=== PATIENT | male | born 1960 | race Caucasian/White ===

== ENCOUNTER 2017-10-18 15:12 | Observation (INO) | payer MEDICAID ==
[2017-10-18] MEDS ORDERED: Ondansetron 4 MG/2 ML SDV IVPUSH ONE (15:58)
[2017-10-18] MEDS ORDERED: Potassium Chloride 20 MEQ in Premix Bag 1 BAG IV ONE (15:58)
[2017-10-18] MEDS ORDERED: Sodium Chloride 0.9% 1,000 ML IV SCH (16:00)
[2017-10-18] MEDS ORDERED: NS + KCl 20mEq/L 1,000 ML IV SCH (16:00)
--- NOTE | 2017-10-18 16:04 | EDM.PDOC ---
ED HPI GENERAL MEDICAL PROBLEM - General Chief Complaint: General Stated Complaint: ILNESS FROM THE CLINIC Time Seen by Provider: 10/18/17 15:45 Source of Information: Reports: Patient, Family History Limitations: Reports: No Limitations - History of Present Illness INITIAL COMMENTS - FREE TEXT/NARRATIVE: 57-year-old male sent over from the clinic after being evaluated for persistent gastroenteritis over the last several days. He had diarrhea for 2 days, that seems to have resolved but nausea and vomiting is persistent for 4 days. He feels weak, is having muscle cramps, and went into the clinic today to be evaluated. He was found to have a potassium of 2.3. This patient is on no medications and rarely goes to the doctor. Denies any fevers but is chilled. No abdominal cramping. No previous travel or other medications. Onset: Gradual (Over the past 4-5 days) Severity: Moderate Associated Symptoms: Reports: Fever/Chills, Malaise, Nausea/Vomiting, Weakness. Denies: Chest Pain (Intermittent chills, no known fever), Shortness of Breath Bilateral Leg Pain Score (Numeric/FACES): 6 - Related Data Allergies Allergy/AdvReac Type Severity Reaction Status Date / Time No Known Allergies Allergy Verified 10/18/17 15:46 Home Meds: Home Meds NK [No Known Home Meds] 10/18/17 [History] Past Medical History - Past Health History Medical/Surgical History: Denies Medical/Surgical History Social & Family History - Tobacco Use Smoking Status *Q: Current Every Day Smoker Years of Tobacco use: 30 Packs/Tins Daily: 1 - Caffeine Use Caffeine Use: Reports: None - Alcohol Use Days Per Week of Alcohol Use: 7 Number of Drinks Per Day: 1 Total Drinks Per Week: 7 - Recreational Drug Use Recreational Drug Use: No ED ROS GENERAL - Review of Systems Review Of Systems: See Below Constitutional: Reports: Chills, Malaise, Weakness, Decreased Appetite, Weight Loss. Denies: Fever HEENT: Denies: Throat Pain Respiratory: Denies: Shortness of Breath, Cough Cardiovascular: Reports: Lightheadedness. Denies: Chest Pain, Palpitations GI/Abdominal: Reports: Nausea, Vomiting. Denies: Abdominal Pain : Reports: No Symptoms Skin: Reports: No Symptoms Neurological: Denies: Headache Psychiatric: Reports: No Symptoms ED EXAM, GENERAL - Physical Exam Exam: See Below Exam Limited By: No Limitations General Appearance: Alert, No Apparent Distress (Patient looks uncomfortable but not distressed) Eye Exam: Bilateral Eye: Normal Inspection Throat/Mouth: Normal Inspection Head: Atraumatic Respiratory/Chest: No Respiratory Distress, Lungs Clear Cardiovascular: Regular Rate, Rhythm. No: Tachycardia GI/Abdominal: Soft, Abnormal Bowel Sounds (Very hypoactive bowel sounds) Extremities: Normal Inspection, Increased Warmth. No: Pedal Edema Neurological: Oriented Psychiatric: Normal Affect, Normal Mood Skin Exam: Warm, Dry Course - Vital Signs Last Recorded V/S: Last Vital Signs Temp 96.8 F 10/18/17 17:41 Pulse 78 10/18/17 17:41 Resp 18 10/18/17 17:41 BP 153/95 H 10/18/17 17:41 Pulse Ox 100 10/18/17 17:41 - Orders/Labs/Meds Orders: Active Orders 24 hr Category Date Time Status NS + KCl 20mEq/L [Normal Saline with 20 mEq KCl] 1,000 Med 10/18/17 16:00 Active ml IV ASDIRECTED Medication Orders Acetaminophen (Tylenol) 650 mg PO Q4H PRN PRN Reason: Pain (Mild 1-3)/fever Potassium Chloride/Sodium Chloride (Normal Saline With 20 Meq Kcl) 1,000 mls @ 500 mls/hr IV ASDIRECTED ENOC Last Admin: 10/18/17 16:27 Dose: 500 mls/hr Sodium Chloride (Normal Saline) 1,000 mls @ 100 mls/hr IV ASDIRECTED ENOC Potassium Chloride 20 meq/Lidocaine HCl 2 ml/ Sodium Chloride 112 mls @ 50 mls/ hr IV Q2H ENOC Stop: 10/18/17 21:59 Ondansetron HCl (Zofran Odt) 4 mg PO Q6H PRN PRN Reason: Nausea able to take PO Ondansetron HCl (Zofran) 4 mg IV Q6H PRN PRN Reason: Nausea/Vomiting Meds: Medications Generic Name Dose Route Start Last Admin Trade Name Freq PRN Reason Stop Dose Admin Acetaminophen 650 mg 10/18/17 17:19 Tylenol PO Q4H PRN Pain (Mild 1-3)/fever Potassium Chloride/Sodium Chloride 1,000 mls @ 500 mls/hr 10/18/17 16:00 16:27 Normal Saline With 20 Meq Kcl IV 500 mls/hr ASDIRECTED ENOC Administration Sodium Chloride 1,000 mls @ 100 mls/hr 10/18/17 17:19 Normal Saline IV ASDIRECTED ENOC Potassium Chloride 20 meq/ 112 mls @ 50 mls/hr 10/18/17 18:00 Lidocaine HCl 2 ml/ Sodium IV 10/18/17 21:59 Chloride Q2H ENOC Ondansetron HCl 4 mg 10/18/17 17:19 Zofran Odt PO Q6H PRN Nausea able to take PO Ondansetron HCl 4 mg 10/18/17 17:19 Zofran IV Q6H PRN Nausea/Vomiting Discontinued Medications Generic Name Dose Route Start Last Admin Trade Name Freq PRN Reason Stop Dose Admin Ondansetron HCl 4 mg 10/18/17 15:58 10/18/17 16:28 Zofran IVPUSH 10/18/17 15:59 4 mg ONETIME ONE Administration - Re-Assessments/Exams Free Text/Narrative Re-Assessment/Exam: 10/18/17 16:08 Patient will be hydrated with normal saline with 40 mEq of potassium at 500 mL an hour. He was also given 4 mg of IV Zofran. 10/18/17 16:35 I discussed the patient's symptoms as well as his significant hypokalemia with our hospitalist Dr. Dillon. He kindly agreed to see the patient and assess for possible admission. Departure - Departure Time of Disposition: 17:32 Disposition: Admitted As Inpatient 64 Condition: Fair Clinical Impression: Hypokalemia, Gastroenteritis, Dehydration - Discharge Information - My Orders Last 24 Hours: My Active Orders 10/18/17 16:00 NS + KCl 20mEq/L [Normal Saline with 20 mEq KCl] 1,000 ml IV ASDIRECTED - Assessment/Plan Last 24 Hours: My Active Orders 10/18/17 16:00 NS + KCl 20mEq/L [Normal Saline with 20 mEq KCl] 1,000 ml IV ASDIRECTED
--- NOTE | 2017-10-18 16:57 | PCM.HP ---
H&P History of Present Illness - General Date of Service: 10/18/17 Admit Problem/Dx: Admission Diagnosis/Problem Admission Diagnosis/Problem Gastroenteritis Source of Information: Patient, Provider History Limitations: Reports: No Limitations - History of Present Illness Initial Comments - Free Text/Narative: Elieser presents to the emergency room today with weakness and persistent nausea. He reports onset of symptoms about 4 days ago. Initially he had watery diarrhea as well as nausea with vomiting. The watery diarrhea last 2 days before resolving spontaneously. Despite the resolution of the diarrhea he has had persistent nausea and intermittent episodes of vomiting. He has not kept any food down in 4 days but was able to keep water down today. He reports subjective fevers and chills at home but did not have a thermometer to measure any temperatures. He did have some mild crampy abdominal pain at the onset of the diarrhea but this has resolved. He did not take anything for the pain because it was mild. The pain seemed to be worst right around the time of having a bowel movement. He did not notice any blood in his stool. No complaints of shortness of breath. He does feel weak and does not have an appetite. He is not aware of any sick contacts. He was initially evaluated in the clinic and found to have a potassium of 2.3 so he was sent to the emergency room. He has received some potassium replacement but with persistent nausea he likely will not be safe for outpatient management and would benefit from at least overnight admission for hydration and potassium replacement. Bilateral Leg Pain Score (Numeric/FACES): 6 - Related Data Allergies/Adverse Reactions: Allergies Allergy/AdvReac Type Severity Reaction Status Date / Time No Known Allergies Allergy Verified 10/18/17 15:46 Home Medications: Home Meds NK [No Known Home Meds] 10/18/17 [History] Past Medical History - Past Health History Medical/Surgical History: Denies Medical/Surgical History Social & Family History - Family History Cardiac: Reports: CAD (Dad) - Tobacco Use Smoking Status *Q: Current Every Day Smoker Years of Tobacco use: 30 Packs/Tins Daily: 1 - Caffeine Use Caffeine Use: Reports: None - Alcohol Use Days Per Week of Alcohol Use: 7 Number of Drinks Per Day: 1 Total Drinks Per Week: 7 - Recreational Drug Use Recreational Drug Use: No H&P Review of Systems - Review of Systems: Review Of Systems: See Below Free Text/Narrative: A complete 12 point review of systems was obtained. Pertinent positives and negatives are noted in the history of present illness. All other systems were reviewed and were negative except as noted. Exam - Exam Exam: See Below - Vital Signs Vital Signs: Last Vital Signs Temp 36.5 C 10/18/17 15:37 Pulse 90 10/18/17 15:37 Resp 20 10/18/17 15:37 BP 151/100 H 10/18/17 15:37 Pulse Ox 99 10/18/17 15:37 Weight: 81.647 kg - Exam Quality Assessment: No: Supplemental Oxygen General: Alert, Oriented, Cooperative. No: Mild Distress HEENT: Conjunctiva Clear. No: Mucosa Moist & [place] (dry), Scleral Icterus Neck: Supple, Trachea Midline. No: Lymphadenopathy Lungs: Clear to Auscultation, Normal Respiratory Effort Cardiovascular: Regular Rate, Regular Rhythm GI/Abdominal Exam: Soft, Non-Tender, No Distention, No Mass. No: Normal Bowel Sounds (hypoactive) Back Exam: Normal Inspection, Full Range of Motion Extremities: No Pedal Edema. No: Increased Warmth Peripheral Pulses: 2+: Dorsalis Pedis (L), Dorsalis Pedis (R) Skin: Warm, Dry, Intact Neuro Extensive - Mental Status: Alert, Oriented x3, Nl Response to Commands Neuro Extensive - Motor, Sensory, Reflexes: CN II-XII Intact. No: Dysarthria, Abnormal Motor, Tremor Psychiatric: Alert, Normal Affect - Patient Data Lab Results Last 24 hrs: K - 2.3 *Q Meaningful Use (ADM) - VTE *Q VTE Criteria *Q: - VTE Risk Assess *Q Each Risk Factor Represents 1 Point: Age 41 - 59 years Total Score 1 Point Risk Factors: 1 Each Risk Factor Represents 2 Points: None Total Score 2 Point Risk Factors: 0 Each Risk Factor Represents 3 Points: None Total Score 3 Point Risk Factors: 0 Each Risk Factor Represents 5 Points: None Total Score 5 Point Risk Factors: 0 Venous Thromboembolism Risk Factor Score *Q: 1 - Stroke *Q Stroke Criteria *Q: - AMI *Q AMI Criteria *Q: - Problem List (1) Hypokalemia SNOMED Code(s): 82887145 ICD Code: E87.6 - HYPOKALEMIA Status: Acute Current Visit: Yes (2) Gastroenteritis SNOMED Code(s): 17114839 ICD Code: K52.9 - NONINFECTIVE GASTROENTERITIS AND COLITIS, UNSPECIFIED Status: Acute Current Visit: Yes (3) Dehydration SNOMED Code(s): 35588344 ICD Code: E86.0 - DEHYDRATION Status: Acute Current Visit: Yes Problem List Initiated/Reviewed/Updated: Yes Orders Last 24hrs: Active Orders 24 hr Category Date Time Status Patient Status Manage Transfer [TRANSFER] Routine ADT 10/18/17 16:47 Ordered NS + KCl 20mEq/L [Normal Saline with 20 mEq KCl] 1,000 Med 10/18/17 16:00 Active ml IV ASDIRECTED Resuscitation Status Routine Resus Stat 10/18/17 16:48 Ordered Medication Orders Potassium Chloride/Sodium Chloride (Normal Saline With 20 Meq Kcl) 1,000 mls @ 500 mls/hr IV ASDIRECTED ENOC Last Admin: 10/18/17 16:27 Dose: 500 mls/hr Assessment/Plan Comment:: ASSESSMENT AND PLAN - Hypokalemia - profound hypokalemia noted in the clinic. Likely secondary to combination of diarrhea as well as persistent vomiting and poor oral intake over the past 4 days. He appears to be symptomatic with this but given his weakness and some muscle cramping. He will have received a total of 20 mEq in the emergency room prior to admission. -40 mEq via IV piggyback -Repeat level this evening and replace as indicated Acute gastroenteritis, likely viral - diarrhea has resolved and vomiting seems to be resolved at this point as well but persistent nausea. He has evidence for at least moderate dehydration. -Symptomatic management -IV fluids -Clear liquids tonight, advance as tolerated after that Maintenance issues - - DVT prophylaxis - mechanical - GI prophylaxis - not indicated - Nutrition - clear liquids, advance as tolerated - Cobian catheter - not indicated CODE STATUS - full code Admission justification - This patient will be admitted for inpatient services and is medically appropriate meeting medical necessity for inpatient admission as outlined in my documentation. I reasonably expect the patient will require inpatient services that span a period time over 2 midnights. I reasonably expect this patient to be discharged or transferred within 96 hours after admission to the [facility]. Disposition - anticipate discharge to home tomorrow Primary care physician - no primary care Mandeep Dillon M.D.
[2017-10-18] MEDS ORDERED: Ondansetron 4 MG Tab.DIS PO PRN (17:19)
[2017-10-18] MEDS ORDERED: Ondansetron 4 MG/2 ML SDV IV PRN (17:19)
[2017-10-18] MEDS ORDERED: Acetaminophen 325 MG Tab PO PRN (17:19)
[2017-10-18] MEDS: Sodium Chloride 0.9% 1,000 ML IV SCH (18:33)
[2017-10-18] MEDS: Potassium Chloride 20 MEQ, Lidocaine 1% 2 ML in Sodium Chloride 0.9% 100 ML IV SCH ×2 (18:34→20:52)
[2017-10-19] MEDS ORDERED: Potassium Chloride 20 MEQ in Premix Bag 1 BAG IV ONE ×3 (02:00)
[2017-10-19] MEDS: Potassium Chloride 20 MEQ, Lidocaine 1% 2 ML in Sodium Chloride 0.9% 100 ML IV SCH ×3 (10:30→15:57)
[2017-10-19] MEDS: Magnesium Sulfate/Water 2 GM in Premix Bag 1 BAG IV SCH ×4 (15:30→23:59)
--- NOTE | 2017-10-19 15:42 | PCM.PN ---
- General Info Date of Service: 10/19/17 - Review of Systems General: Reports: Weakness, Fatigue. Denies: Fever Gastrointestinal: Denies: Abdominal Pain, Diarrhea, Nausea Systems Review Comment:: No acute events overnight. No nausea or vomiting. He has not had any diarrhea or fevers. Appetite is a little better today but still only able to get down small quantities of fluid. Potassium level has not improved much despite aggressive supplementation overnight. Magnesium level was noted to be low this morning. - Patient Data Vitals - Most Recent: Last Vital Signs Temp 37.3 C 10/18/17 23:02 Pulse 88 10/18/17 23:02 Resp 18 10/18/17 23:02 BP 139/91 H 10/18/17 23:02 Pulse Ox 98 10/18/17 23:02 Weight - Most Recent: 81.647 kg I&O - Last 24 Hours: Intake & Output 10/19/17 10/19/17 10/19/17 06:59 14:59 22:59 Intake Total 100 Output Total 150 Balance -50 Lab Results Last 24 Hours: Laboratory Results - last 24 hr 10/18/17 10/19/17 Range/Units 23:30 04:31 Sodium 143 (140-148) mmol/L Potassium 2.3 L* 2.5 L* (3.6-5.2) mmol/L Chloride 107 (100-108) mmol/L Carbon Dioxide 26 (21-32) mmol/L Anion Gap 10.3 (5.0-14.0) mmol/L BUN 11 (7-18) mg/dL Creatinine 0.7 L (0.8-1.3) mg/dL Est Cr Clr Drug Dosing 131.22 mL/min Estimated GFR (MDRD) > 60 (>60) Glucose 89 (74-106) mg/dL Calcium 8.0 L (8.5-10.1) mg/dL Med Orders - Current: Current Medications Acetaminophen (Tylenol) 650 mg PO Q4H PRN PRN Reason: Pain (Mild 1-3)/fever Sodium Chloride (Normal Saline) 1,000 mls @ 100 mls/hr IV ASDIRECTED ENOC Last Admin: 10/18/17 18:33 Dose: 100 mls/hr Magnesium Sulfate 2 gm/ Premix 50 mls @ 25 mls/hr IV Q6H ENOC Stop: 10/20/17 04:59 Ondansetron HCl (Zofran Odt) 4 mg PO Q6H PRN PRN Reason: Nausea able to take PO Ondansetron HCl (Zofran) 4 mg IV Q6H PRN PRN Reason: Nausea/Vomiting Discontinued Medications Potassium Chloride/Sodium Chloride (Normal Saline With 20 Meq Kcl) 1,000 mls @ 500 mls/hr IV ASDIRECTED COUNTS INCLUDE 234 BEDS AT THE [facility] Last Admin: 10/18/17 16:27 Dose: 500 mls/hr Potassium Chloride 20 meq/Lidocaine HCl 2 ml/ Sodium Chloride 112 mls @ 50 mls/ hr IV Q2H ENOC Stop: 10/18/17 21:59 Last Admin: 10/18/17 20:52 Dose: 50 mls/hr Potassium Chloride 20 meq/ (Premix) 100 mls @ 50 mls/hr IV ONETIME ONE Stop: 10/19/17 01:59 Last Admin: 10/19/17 00:33 Dose: 50 mls/hr Potassium Chloride 20 meq/ (Premix) 100 mls @ 50 mls/hr IV ONETIME ONE Stop: 10/19/17 03:59 Last Admin: 10/19/17 02:44 Dose: 50 mls/hr Potassium Chloride 20 meq/Lidocaine HCl 2 ml/ Sodium Chloride 112 mls @ 56 mls/ hr IV Q2H COUNTS INCLUDE 234 BEDS AT THE [facility] Stop: 10/19/17 14:29 Lidocaine HCl (Xylocaine-Mpf 1%) 5 ml INJECT ONETIME ONE Stop: 10/19/17 00:01 Last Admin: 10/19/17 00:33 Dose: 5 ml Ondansetron HCl (Zofran) 4 mg IVPUSH ONETIME ONE Stop: 10/18/17 15:59 Last Admin: 10/18/17 16:28 Dose: 4 mg - Exam Quality Assessment: No: Supplemental Oxygen General: Alert, Oriented, Cooperative, No Acute Distress Neck: Supple Lungs: Normal Respiratory Effort Cardiovascular: Regular Rate, Regular Rhythm GI/Abdominal Exam: Soft, No Distention Extremities: No Pedal Edema - Problem List & Annotations (1) Hypokalemia SNOMED Code(s): 45003236 Code(s): E87.6 - HYPOKALEMIA Status: Acute Current Visit: Yes (2) Gastroenteritis SNOMED Code(s): 67399291 Code(s): K52.9 - NONINFECTIVE GASTROENTERITIS AND COLITIS, UNSPECIFIED Status: Acute Current Visit: Yes (3) Dehydration SNOMED Code(s): 47228787 Code(s): E86.0 - DEHYDRATION Status: Acute Current Visit: Yes - Problem List Review Problem List Initiated/Reviewed/Updated: Yes - My Orders Last 24 Hours: My Active Orders 10/18/17 16:48 Resuscitation Status Routine 10/18/17 17:19 Patient Status [ADT] Routine Intake and Output [RC] Q12H Notify Provider Vital Signs [RC] ASDIRECTED Oxygen Therapy [RC] PRN Up ad Yessica [RC] ASDIRECTED VTE/DVT Education [RC] Per Unit Routine Vital Signs [RC] Q4H Acetaminophen [Tylenol] 650 mg PO Q4H PRN Ondansetron [Zofran ODT] 4 mg PO Q6H PRN Ondansetron [Zofran] 4 mg IV Q6H PRN Sodium Chloride 0.9% [Normal Saline] 1,000 ml IV ASDIRECTED Sequential Compression Device [OM.PC] Per Unit Routine 10/18/17 Dinner Clear Liquid Diet [DIET] 10/19/17 09:00 Magnesium Sulfate/Water [Magnesium Sulfate 2 GM in Water 50 ML] 2 gm Premix Bag 1 bag IV Q6H 10/19/17 16:00 POTASSIUM,K [CHEM] Timed 10/20/17 05:00 BASIC METABOLIC PANEL,BMP [CHEM] Timed CBC W/O DIFF,HEMOGRAM [HEME] Timed (1) - Plan Plan:: ASSESSMENT AND PLAN - Hypokalemia - profound hypokalemia, has been resistant to supplementation. Hopefully improving his magnesium levels will make supplementation more efficient. -40 mEq by mouth and 20 mEq via IV piggyback -Repeat lab tonight and in the morning Acute gastroenteritis, likely viral - diarrhea and vomiting have resolved but still not much of an appetite and poor intake. -Symptomatic management -Continue IV fluids -Clear liquids, advance as tolerated after that Maintenance issues - - DVT prophylaxis - mechanical - GI prophylaxis - not indicated - Nutrition - clear liquids, advance as tolerated Disposition - anticipate discharge to home tomorrow Mandeep Dillon M.D.
[2017-10-19] MEDS ORDERED: Potassium Chloride 20 MEQ, Lidocaine 1% 2 ML in Sodium Chloride 0.9% 100 ML IV SCH (17:00)
[2017-10-19] MEDS ORDERED: Potassium Chloride 20 MEQ Tab.ER PO ONE (17:00)
[2017-10-19] MEDS: Sodium Chloride 0.9% 1,000 ML IV SCH (17:51)
[2017-10-20] MEDS ORDERED: Potassium Chloride 20 MEQ Tab.ER PO ONE ×4 (00:22→21:26)
--- NOTE | 2017-10-20 00:54 | PCM.SN ---
- Free Text/Narrative Note: time 2400; call from [address] [place] [address]. o; potassium level 3.5 a; potassium low p; give Potassium 40 meq po now. recheck potassium in am.
[2017-10-20] MEDS: Magnesium Sulfate/Water 2 GM in Premix Bag 1 BAG IV SCH (03:27)
[2017-10-20] MEDS: Sodium Chloride 0.9% 1,000 ML IV SCH (05:30)
--- NOTE | 2017-10-20 08:51 | PCM.PN ---
- General Info Date of Service: 10/20/17 Functional Status: Reports: Pain Controlled, Tolerating Diet - Review of Systems General: Reports: Weakness, Fatigue HEENT: Reports: Visual Changes Gastrointestinal: Denies: Diarrhea, Nausea Systems Review Comment:: No acute events overnight. No vomiting or diarrhea. Stomach still feels a little queasy and not much of an appetite. Potassium level still low despite aggressive replacement. No fevers. - Patient Data Vitals - Most Recent: Last Vital Signs Temp 36.3 C 10/20/17 07:24 Pulse 81 10/20/17 07:24 Resp 18 10/20/17 07:24 BP 147/88 H 10/20/17 07:24 Pulse Ox 99 10/20/17 07:24 Weight - Most Recent: 81.647 kg I&O - Last 24 Hours: Intake & Output 10/19/17 10/20/17 10/20/17 22:59 06:59 14:59 Intake Total 2173 1106 480 Output Total 2250 2100 325 Balance -77 -994 155 Lab Results Last 24 Hours: Laboratory Results - last 24 hr 10/19/17 10/19/17 10/19/17 Range/Units 04:31 08:40 15:51 WBC (4.5-11.0) K/uL RBC (4.30-5.90) M/uL Hgb (12.0-15.0) g/dL Hct (40.0-54.0) % MCV (80-98) fL MCH (27-31) pg MCHC (32-36) % Plt Count (150-400) K/uL Sodium 143 (140-148) mmol/L Potassium 2.5 L* 2.5 L* (3.6-5.2) mmol/L Chloride 107 (100-108) mmol/L Carbon Dioxide 26 (21-32) mmol/L Anion Gap 10.3 (5.0-14.0) mmol/L BUN 11 (7-18) mg/dL Creatinine 0.7 L (0.8-1.3) mg/dL Est Cr Clr Drug Dosing 131.22 mL/min Estimated GFR (MDRD) > 60 (>60) Glucose 89 (74-106) mg/dL Calcium 8.0 L (8.5-10.1) mg/dL Magnesium 1.3 L (1.8-2.4) mg/dL 10/19/17 10/20/17 10/20/17 Range/Units 23:50 05:45 05:45 WBC 6.9 (4.5-11.0) K/uL RBC 3.87 L (4.30-5.90) M/uL Hgb 14.3 (12.0-15.0) g/dL Hct 37.8 L (40.0-54.0) % MCV 98 (80-98) fL MCH 37 H (27-31) pg MCHC 38 H (32-36) % Plt Count 230 (150-400) K/uL Sodium 140 (140-148) mmol/L Potassium 3.0 L 2.7 L* (3.6-5.2) mmol/L Chloride 103 (100-108) mmol/L Carbon Dioxide 25 (21-32) mmol/L Anion Gap 14.7 H (5.0-14.0) mmol/L BUN 4 L D (7-18) mg/dL Creatinine 0.7 L (0.8-1.3) mg/dL Est Cr Clr Drug Dosing 131.22 mL/min Estimated GFR (MDRD) > 60 (>60) Glucose 100 (74-106) mg/dL Calcium 8.0 L (8.5-10.1) mg/dL Magnesium (1.8-2.4) mg/dL Med Orders - Current: Current Medications Acetaminophen (Tylenol) 650 mg PO Q4H PRN PRN Reason: Pain (Mild 1-3)/fever Potassium Chloride 20 meq/Lidocaine HCl 2 ml/ Sodium Chloride 112 mls @ 56 mls/ hr IV Q2H [facility] Stop: 10/20/17 13:59 Ondansetron HCl (Zofran Odt) 4 mg PO Q6H PRN PRN Reason: Nausea able to take PO Ondansetron HCl (Zofran) 4 mg IV Q6H PRN PRN Reason: Nausea/Vomiting Discontinued Medications Potassium Chloride/Sodium Chloride (Normal Saline With 20 Meq Kcl) 1,000 mls @ 500 mls/hr IV ASDIRECTED [facility] Last Admin: 10/18/17 16:27 Dose: 500 mls/hr Sodium Chloride (Normal Saline) 1,000 mls @ 100 mls/hr IV ASDIRECTED [facility] Last Admin: 10/20/17 05:30 Dose: 100 mls/hr Potassium Chloride 20 meq/Lidocaine HCl 2 ml/ Sodium Chloride 112 mls @ 50 mls/ hr IV Q2H [facility] Stop: 10/18/17 21:59 Last Admin: 10/18/17 20:52 Dose: 50 mls/hr Potassium Chloride 20 meq/ (Premix) 100 mls @ 50 mls/hr IV ONETIME ONE Stop: 10/19/17 01:59 Last Admin: 10/19/17 00:33 Dose: 50 mls/hr Potassium Chloride 20 meq/ (Premix) 100 mls @ 50 mls/hr IV ONETIME ONE Stop: 10/19/17 03:59 Last Admin: 10/19/17 02:44 Dose: 50 mls/hr Potassium Chloride 20 meq/Lidocaine HCl 2 ml/ Sodium Chloride 112 mls @ 56 mls/ hr IV Q2H [facility] Stop: 10/19/17 14:29 Last Admin: 10/19/17 15:57 Dose: Not Given Magnesium Sulfate 2 gm/ Premix 50 mls @ 25 mls/hr IV Q6H [facility] Stop: 10/20/17 04:59 Last Admin: 10/19/17 15:51 Dose: Not Given Magnesium Sulfate 2 gm/ Premix 50 mls @ 25 mls/hr IV Q4H [facility] Stop: 10/20/17 05:29 Last Admin: 10/20/17 03:27 Dose: 25 mls/hr Potassium Chloride 20 meq/Lidocaine HCl 2 ml/ Sodium Chloride 112 mls @ 50 mls/ hr IV Q2H [facility] Stop: 10/19/17 18:59 Last Admin: 10/19/17 18:14 Dose: 50 mls/hr Lidocaine HCl (Xylocaine-Mpf 1%) 5 ml INJECT ONETIME ONE Stop: 10/19/17 00:01 Last Admin: 10/19/17 00:33 Dose: 5 ml Ondansetron HCl (Zofran) 4 mg IVPUSH ONETIME ONE Stop: 10/18/17 15:59 Last Admin: 10/18/17 16:28 Dose: 4 mg Potassium Chloride (Klor-Con M20) 40 meq PO ONETIME ONE Stop: 10/19/17 17:01 Last Admin: 10/19/17 18:10 Dose: 40 meq Potassium Chloride (Klor-Con M20) 40 meq PO ONETIME ONE Stop: 10/20/17 00:23 Last Admin: 10/20/17 00:31 Dose: 40 meq Potassium Chloride (Klor-Con M20) 40 meq PO ONETIME ONE Stop: 10/20/17 06:31 Last Admin: 10/20/17 07:32 Dose: 40 meq - Exam Quality Assessment: No: Supplemental Oxygen General: Alert, Oriented, Cooperative, No Acute Distress Neck: Supple Lungs: Normal Respiratory Effort GI/Abdominal Exam: Soft, Non-Tender, No Distention, No Mass Extremities: No Pedal Edema Skin: Warm, Dry Psy/Mental Status: Alert, Normal Affect - Problem List & Annotations (1) Hypokalemia SNOMED Code(s): 22557155 Code(s): E87.6 - HYPOKALEMIA Status: Acute Current Visit: Yes (2) Gastroenteritis SNOMED Code(s): 60395602 Code(s): K52.9 - NONINFECTIVE GASTROENTERITIS AND COLITIS, UNSPECIFIED Status: Acute Current Visit: Yes (3) Dehydration SNOMED Code(s): 54043170 Code(s): E86.0 - DEHYDRATION Status: Acute Current Visit: Yes - Problem List Review Problem List Initiated/Reviewed/Updated: Yes - My Orders Last 24 Hours: My Active Orders 10/20/17 08:50 Convert IV to Saline Lock [OM.PC] Routine 10/20/17 10:00 Potassium Chloride 20 meq Lidocaine 1% [Xylocaine 1%] 2 ml Sodium Chloride 0.9 % [Normal Saline] 100 ml IV Q2H 10/20/17 13:00 POTASSIUM,K [CHEM] Timed 10/21/17 05:00 BASIC METABOLIC PANEL,BMP [CHEM] Timed - Plan Plan:: ASSESSMENT AND PLAN - Hypokalemia - potassium still low despite aggressive replacement. -40 mEq by mouth and 20 mEq via IV piggyback -Repeat lab this afternoon Acute gastroenteritis, likely viral - symptoms resolved but not much of an appetite. -Saline lock IV -Advance diet as tolerated Maintenance issues - - DVT prophylaxis - mechanical - GI prophylaxis - not indicated - Nutrition - clear liquids, advance as tolerated Disposition - anticipate discharge to home tomorrow if potassium level has normalized Mandeep Dillon M.D.
[2017-10-20] MEDS: Potassium Chloride 20 MEQ, Lidocaine 1% 2 ML in Sodium Chloride 0.9% 100 ML IV SCH ×2 (10:15→12:19)
--- NOTE | 2017-10-20 23:03 | PCM.SN ---
- Free Text/Narrative Note: o: lab potassium 3.2 at 20:00 a; hypokalemia p; order Potassium 40meq po once recheck Potassium lab in am. continue present plan of care
[2017-10-21] MEDS ORDERED: Potassium Chloride 20 MEQ Tab.ER PO ONE (09:00)
--- NOTE | 2017-10-21 14:05 | PCM.PN ---
- General Info Date of Service: 10/21/17 Functional Status: Reports: Pain Controlled, Tolerating Diet - Review of Systems General: Reports: Weakness. Denies: Fever Systems Review Comment:: no acute events overnight though he did have one episode of vomiting after lunch yesterday. Tolerated supper and breakfast. Potassium level is finally nearing normal. No abdominal pain or diarrhea. Still having blurred vision and now reports that it has been present for months and getting worse over the course of years. Very nervous about going home. - Patient Data Vitals - Most Recent: Last Vital Signs Temp 36.4 C 10/21/17 11:05 Pulse 72 10/21/17 11:05 Resp 17 10/21/17 11:05 BP 157/98 H 10/21/17 11:05 Pulse Ox 99 10/21/17 11:05 Weight - Most Recent: 81.647 kg I&O - Last 24 Hours: Intake & Output 10/20/17 10/21/17 10/21/17 22:59 06:59 14:59 Intake Total 240 Output Total 1100 175 Balance -860 -175 Lab Results Last 24 Hours: Laboratory Results - last 24 hr 10/20/17 10/21/17 Range/Units 20:00 04:50 Sodium 139 L (140-148) mmol/L Potassium 3.2 L 3.4 L (3.6-5.2) mmol/L Chloride 104 (100-108) mmol/L Carbon Dioxide 23 (21-32) mmol/L Anion Gap 15.4 H (5.0-14.0) mmol/L BUN 4 L (7-18) mg/dL Creatinine 0.8 (0.8-1.3) mg/dL Est Cr Clr Drug Dosing 114.82 mL/min Estimated GFR (MDRD) > 60 (>60) Glucose 93 (74-106) mg/dL Calcium 8.2 L (8.5-10.1) mg/dL Med Orders - Current: Current Medications Acetaminophen (Tylenol) 650 mg PO Q4H PRN PRN Reason: Pain (Mild 1-3)/fever Ondansetron HCl (Zofran Odt) 4 mg PO Q6H PRN PRN Reason: Nausea able to take PO Last Admin: 10/20/17 14:38 Dose: 4 mg Ondansetron HCl (Zofran) 4 mg IV Q6H PRN PRN Reason: Nausea/Vomiting Pantoprazole Sodium (Protonix) 40 mg PO BIDAC [facility] Discontinued Medications Potassium Chloride/Sodium Chloride (Normal Saline With 20 Meq Kcl) 1,000 mls @ 500 mls/hr IV ASDIRECTED [facility] Last Admin: 10/18/17 16:27 Dose: 500 mls/hr Sodium Chloride (Normal Saline) 1,000 mls @ 100 mls/hr IV ASDIRECTED [facility] Last Admin: 10/20/17 05:30 Dose: 100 mls/hr Potassium Chloride 20 meq/Lidocaine HCl 2 ml/ Sodium Chloride 112 mls @ 50 mls/ hr IV Q2H [facility] Stop: 10/18/17 21:59 Last Admin: 10/18/17 20:52 Dose: 50 mls/hr Potassium Chloride 20 meq/ (Premix) 100 mls @ 50 mls/hr IV ONETIME ONE Stop: 10/19/17 01:59 Last Admin: 10/19/17 00:33 Dose: 50 mls/hr Potassium Chloride 20 meq/ (Premix) 100 mls @ 50 mls/hr IV ONETIME ONE Stop: 10/19/17 03:59 Last Admin: 10/19/17 02:44 Dose: 50 mls/hr Potassium Chloride 20 meq/Lidocaine HCl 2 ml/ Sodium Chloride 112 mls @ 56 mls/ hr IV Q2H [facility] Stop: 10/19/17 14:29 Last Admin: 10/19/17 13:00 Dose: 56 mls/hr Magnesium Sulfate 2 gm/ Premix 50 mls @ 25 mls/hr IV Q6H [facility] Stop: 10/20/17 04:59 Last Admin: 10/19/17 15:51 Dose: Not Given Magnesium Sulfate 2 gm/ Premix 50 mls @ 25 mls/hr IV Q4H [facility] Stop: 10/20/17 05:29 Last Admin: 10/20/17 03:27 Dose: 25 mls/hr Potassium Chloride 20 meq/Lidocaine HCl 2 ml/ Sodium Chloride 112 mls @ 50 mls/ hr IV Q2H [facility] Stop: 10/19/17 18:59 Last Admin: 10/19/17 18:14 Dose: 50 mls/hr Potassium Chloride 20 meq/Lidocaine HCl 2 ml/ Sodium Chloride 112 mls @ 56 mls/ hr IV Q2H [facility] Stop: 10/20/17 13:59 Last Admin: 10/20/17 12:19 Dose: 56 mls/hr Lidocaine HCl (Xylocaine-Mpf 1%) 5 ml INJECT ONETIME ONE Stop: 10/19/17 00:01 Last Admin: 10/19/17 00:33 Dose: 5 ml Ondansetron HCl (Zofran) 4 mg IVPUSH ONETIME ONE Stop: 10/18/17 15:59 Last Admin: 10/18/17 16:28 Dose: 4 mg Potassium Chloride (Klor-Con M20) 40 meq PO ONETIME ONE Stop: 10/19/17 17:01 Last Admin: 10/19/17 18:10 Dose: 40 meq Potassium Chloride (Klor-Con M20) 40 meq PO ONETIME ONE Stop: 10/20/17 00:23 Last Admin: 10/20/17 00:31 Dose: 40 meq Potassium Chloride (Klor-Con M20) 40 meq PO ONETIME ONE Stop: 10/20/17 06:31 Last Admin: 10/20/17 07:32 Dose: 40 meq Potassium Chloride (Klor-Con M20) 40 meq PO ONETIME ONE Stop: 10/20/17 14:46 Last Admin: 10/20/17 16:33 Dose: 40 meq Potassium Chloride (Klor-Con M20) 40 meq PO ONETIME ONE Stop: 10/20/17 21:27 Last Admin: 10/20/17 21:50 Dose: 40 meq Potassium Chloride (Klor-Con M20) 40 meq PO ONETIME ONE Stop: 10/21/17 09:01 Last Admin: 10/21/17 09:10 Dose: 40 meq - Exam Quality Assessment: No: Supplemental Oxygen General: Alert, Oriented, Cooperative, No Acute Distress HEENT: Other (Limited funduscopic examination at the bedside today revealed no evidence for hemorrhage. One vessels appeared normal. There was a little bit of blurring of the optic disc bilaterally) Neck: Supple Lungs: Normal Respiratory Effort GI/Abdominal Exam: Soft, Non-Tender, No Distention Extremities: No Pedal Edema Psy/Mental Status: Alert, Normal Affect - Problem List & Annotations (1) Hypokalemia SNOMED Code(s): 56154971 Code(s): E87.6 - HYPOKALEMIA Status: Acute Current Visit: Yes (2) Gastroenteritis SNOMED Code(s): 38469313 Code(s): K52.9 - NONINFECTIVE GASTROENTERITIS AND COLITIS, UNSPECIFIED Status: Acute Current Visit: Yes (3) Dehydration SNOMED Code(s): 47680938 Code(s): E86.0 - DEHYDRATION Status: Acute Current Visit: Yes - Problem List Review Problem List Initiated/Reviewed/Updated: Yes - My Orders Last 24 Hours: My Active Orders 10/20/17 Dinner Regular Diet [DIET] 10/21/17 14:04 PT Evaluation and Treatment [CONS] Routine 10/21/17 16:30 Pantoprazole [ProTONIX] 40 mg PO BIDAC 10/22/17 05:00 BASIC METABOLIC PANEL,BMP [CHEM] Timed - Plan Plan:: ASSESSMENT AND PLAN - Hypokalemia - potassium still low but improving with aggressive replacement. -40 mEq by mouth -Repeat lab in the morning Acute gastroenteritis, likely viral - symptoms resolved but not much of an appetite. -Saline lock IV -Advance diet as tolerated blurred vision - worsening over a long period of time. No obvious acute abnormalities on examination. -Outpatient follow-up Maintenance issues - - DVT prophylaxis - mechanical - GI prophylaxis - not indicated - Nutrition - regular diet Disposition - anticipate discharge to home tomorrow if safe discharge location can be found Mandeep Dillon M.D.
[2017-10-21] MEDS: Pantoprazole 40 MG Tab.CR PO SCH (16:29)
[2017-10-22] MEDS: Pantoprazole 40 MG Tab.CR PO SCH (08:26)
[2017-10-22] MEDS ORDERED: Potassium Chloride 20 MEQ Tab.ER PO ONE (09:00)
--- NOTE | 2017-10-22 10:30 | PCM.DCSUM1 ---
Discharge Summary - Hospital Course Brief History: 57-year-old male who presented with nausea, vomiting and diarrhea. He is admitted for management of gastroenteritis complicated by hypokalemia and hypomagnesemia. - Discharge Data Discharge Date: 10/22/17 Discharge Disposition: Home, Self-Care 01 Condition: Good - Discharge Diagnosis/Problem(s) (1) Hypokalemia SNOMED Code(s): 06039877 ICD Code: E87.6 - HYPOKALEMIA Status: Acute (2) Gastroenteritis SNOMED Code(s): 51473260 ICD Code: K52.9 - NONINFECTIVE GASTROENTERITIS AND COLITIS, UNSPECIFIED Status: Acute (3) Dehydration SNOMED Code(s): 02910646 ICD Code: E86.0 - DEHYDRATION Status: Acute (4) Blurry vision, bilateral SNOMED Code(s): 862349817 ICD Code: H53.8 - OTHER VISUAL DISTURBANCES Status: Acute - Patient Summary/Data Consults: Consultations 10/21/17 14:04 PT Evaluation and Treatment [CONS] Routine Please Evaluate and Treat. PT Reason for Consult: Strengthening This query below is only for informational purposes and is not editable. Admission Diagnosis/Problem: Gastroenteritis Hospital Course: Elieser presented from the clinic where he was found to have significant hypokalemia. He had recently been struggling with diarrhea, nausea and vomiting. He was admitted to the hospital for hydration and electrolyte supplementation. Over the next 24 hours his nausea and vomiting resolved. He required very large quantities of potassium as well as magnesium to help improve his levels. His potassium remained low throughout much of the hospital stay before reaching the low limits of normal on the day of discharge. His potassium was supplemented multiple times per day with frequent checks before we were able to make some improvements. He has not had any diarrhea during the hospital stay. We have been able to slowly advance his diet to soft foods and he has not had any vomiting in more than 48 hours. He has not had any fevers during the hospital stay. From the gastroenteritis point I believe he is well- hydrated and safe for outpatient management. His potassium level has improved to the safe point at the low limits of normal. I did provide information about potassium rich foods prior to discharge. Also encountered during the hospital stay was mild to moderate hypertension and some blurry vision. His blood pressures have trended down during the hospital stay and remain at the upper limits of normal. We have elected to avoid treatment at this time because of the improvements in his pressure as well as lack of health insurance at this time. He would benefit from clinic follow-up to ensure his pressures remain normal or if they remain elevated he should be started on treatment. He also reported a blurry vision. There was a subacute component but he reports that this has been progressing over the course of years. Funduscopic examination during the hospitalization did not reveal evidence for hemorrhage and there were no obvious vascular abnormalities. Because of his lack of health insurance we did not perform a head CT during the hospital stay. I encouraged him to follow-up with the local eye clinics for an examination and further treatment as indicated based on their examination. - Patient Instructions Diet: Regular Diet as Tolerated Diet, Other: soft and bland foods for the next week Activity: As Tolerated Showering/Bathing: May Shower Notify Provider of: Fever, Increased Pain, Nausea and/or Vomiting Other/Special Instructions: 1. You were in the hospital for management of acute viral gastroenteritis complicated by a low potassium level and a low magnesium level. The symptoms of vomiting and diarrhea have resolved. You likely have some residual inflammation in your stomach that will improve over time. You should consume soft and bland foods for the next week or so and then slowly return to your normal diet. 2. Your potassium level was low at the time of admission and required a large quantity of supplementation to returned to normal. I recommend that you eat a diet rich in potassium and we have provided an information sheet listing the potassium content of foods. 3. Please set up a follow up appointment with an eye doctor as soon as possible to have your blurry vision evaluated. 4. Seek medical attention if you develop fever greater than 101, have persistent vomiting, severe diarrhea or severe abdominal pain. - Discharge Plan Home Medications: Home Meds NK [No Known Home Meds] 10/18/17 [History] Patient Handouts: Viral Gastroenteritis, Adult, Potassium Content of Foods Referrals: Neftali Cisneros NP [Nurse Practitioner] - 10/27/17 1:00 pm (follow-up in one week - follow-up hospital stay for gastroenteritis with hypokalemia and blurry vision) - Discharge Summary/Plan Comment DC Time >30 min.: No (25) - Patient Data Vitals - Most Recent: Last Vital Signs Temp 36.7 C 10/22/17 07:18 Pulse 98 10/22/17 07:18 Resp 18 10/22/17 07:18 BP 126/92 H 10/22/17 07:18 Pulse Ox 98 10/22/17 07:18 Weight - Most Recent: 81.647 kg I&O - Last 24 hours: Intake & Output 10/21/17 10/22/17 10/22/17 22:59 06:59 14:59 Intake Total 240 Output Total 250 250 Balance 240 -250 -250 Lab Results - Last 24 hrs: Laboratory Results - last 24 hr 10/22/17 Range/Units 05:56 Sodium 139 L (140-148) mmol/L Potassium 3.2 L (3.6-5.2) mmol/L Chloride 104 (100-108) mmol/L Carbon Dioxide 23 (21-32) mmol/L Anion Gap 15.2 H (5.0-14.0) mmol/L BUN 8 D (7-18) mg/dL Creatinine 0.8 (0.8-1.3) mg/dL Est Cr Clr Drug Dosing 114.82 mL/min Estimated GFR (MDRD) > 60 (>60) Glucose 99 (74-106) mg/dL Calcium 8.6 (8.5-10.1) mg/dL Med Orders - Current: Current Medications Acetaminophen (Tylenol) 650 mg PO Q4H PRN PRN Reason: Pain (Mild 1-3)/fever Ondansetron HCl (Zofran Odt) 4 mg PO Q6H PRN PRN Reason: Nausea able to take PO Last Admin: 10/20/17 14:38 Dose: 4 mg Ondansetron HCl (Zofran) 4 mg IV Q6H PRN PRN Reason: Nausea/Vomiting Pantoprazole Sodium (Protonix) 40 mg PO BIDAC [facility] Last Admin: 10/22/17 08:26 Dose: 40 mg Discontinued Medications Potassium Chloride/Sodium Chloride (Normal Saline With 20 Meq Kcl) 1,000 mls @ 500 mls/hr IV ASDIRECTED [facility] Last Admin: 10/18/17 16:27 Dose: 500 mls/hr Sodium Chloride (Normal Saline) 1,000 mls @ 100 mls/hr IV ASDIRECTED [facility] Last Admin: 10/20/17 05:30 Dose: 100 mls/hr Potassium Chloride 20 meq/Lidocaine HCl 2 ml/ Sodium Chloride 112 mls @ 50 mls/ hr IV Q2H [facility] Stop: 10/18/17 21:59 Last Admin: 10/18/17 20:52 Dose: 50 mls/hr Potassium Chloride 20 meq/ (Premix) 100 mls @ 50 mls/hr IV ONETIME ONE Stop: 10/19/17 01:59 Last Admin: 10/19/17 00:33 Dose: 50 mls/hr Potassium Chloride 20 meq/ (Premix) 100 mls @ 50 mls/hr IV ONETIME ONE Stop: 10/19/17 03:59 Last Admin: 10/19/17 02:44 Dose: 50 mls/hr Potassium Chloride 20 meq/Lidocaine HCl 2 ml/ Sodium Chloride 112 mls @ 56 mls/ hr IV Q2H [facility] Stop: 10/19/17 14:29 Last Admin: 10/19/17 13:00 Dose: 56 mls/hr Magnesium Sulfate 2 gm/ Premix 50 mls @ 25 mls/hr IV Q6H [facility] Stop: 10/20/17 04:59 Last Admin: 10/19/17 15:51 Dose: Not Given Magnesium Sulfate 2 gm/ Premix 50 mls @ 25 mls/hr IV Q4H [facility] Stop: 10/20/17 05:29 Last Admin: 10/20/17 03:27 Dose: 25 mls/hr Potassium Chloride 20 meq/Lidocaine HCl 2 ml/ Sodium Chloride 112 mls @ 50 mls/ hr IV Q2H [facility] Stop: 10/19/17 18:59 Last Admin: 10/19/17 18:14 Dose: 50 mls/hr Potassium Chloride 20 meq/Lidocaine HCl 2 ml/ Sodium Chloride 112 mls @ 56 mls/ hr IV Q2H [facility] Stop: 10/20/17 13:59 Last Admin: 10/20/17 12:19 Dose: 56 mls/hr Lidocaine HCl (Xylocaine-Mpf 1%) 5 ml INJECT ONETIME ONE Stop: 10/19/17 00:01 Last Admin: 10/19/17 00:33 Dose: 5 ml Ondansetron HCl (Zofran) 4 mg IVPUSH ONETIME ONE Stop: 10/18/17 15:59 Last Admin: 10/18/17 16:28 Dose: 4 mg Potassium Chloride (Klor-Con M20) 40 meq PO ONETIME ONE Stop: 10/19/17 17:01 Last Admin: 10/19/17 18:10 Dose: 40 meq Potassium Chloride (Klor-Con M20) 40 meq PO ONETIME ONE Stop: 10/20/17 00:23 Last Admin: 10/20/17 00:31 Dose: 40 meq Potassium Chloride (Klor-Con M20) 40 meq PO ONETIME ONE Stop: 10/20/17 06:31 Last Admin: 10/20/17 07:32 Dose: 40 meq Potassium Chloride (Klor-Con M20) 40 meq PO ONETIME ONE Stop: 10/20/17 14:46 Last Admin: 10/20/17 16:33 Dose: 40 meq Potassium Chloride (Klor-Con M20) 40 meq PO ONETIME ONE Stop: 10/20/17 21:27 Last Admin: 10/20/17 21:50 Dose: 40 meq Potassium Chloride (Klor-Con M20) 40 meq PO ONETIME ONE Stop: 10/21/17 09:01 Last Admin: 10/21/17 09:10 Dose: 40 meq Potassium Chloride (Klor-Con M20) 40 meq PO ONETIME ONE Stop: 10/22/17 09:01 Last Admin: 10/22/17 09:05 Dose: 40 meq - Exam Quality Assessment: Denies: Supplemental Oxygen General: Reports: Alert, Oriented, Cooperative, No Acute Distress Lungs: Reports: Normal Respiratory Effort GI/Abdominal Exam: Soft, No Distention Extremities: No Pedal Edema *Q Meaningful Use (DIS) - VTE *Q VTE Criteria *Q: - Stroke *Q Stroke Criteria *Q: - AMI *Q AMI Criteria *Q:
== END 2017-10-22 11:30 | disposition home or self-care (01) ==
LOC: JP.ED 15:12 → JP.MS 16:47
PROVIDERS: ADMIT Internal Medicine; ATTEND Internal Medicine
DX: K52.9 Noninfective gastroenteritis and colitis, unspecified (principal); E87.6 Hypokalemia; E83.42 Hypomagnesemia; E86.0 Dehydration; H53.8 Other visual disturbances; F17.210 Nicotine dependence, cigarettes, uncomplicated
CPT/HCPCS: 36415; 80048; 83735; 84132; 85027; 96374; 97161; 97530; 99285; A9270; J2405; J3475; J3480; J7030; J7040; 96361; 96365; 96366; 96367; 96375; 99217; 99219; 99224; G0378

== ENCOUNTER 2018-11-24 07:12 | Day surgery (SDC) | payer MEDICAID ==
[~2018-11-24 07:12] MED LIST: Sodium Chloride 0.9% 10 ML Syringe FLUSH PRN
[2018-11-24] MEDS ORDERED: Sodium Chloride 0.9% 10 ML Syringe FLUSH PRN (08:30)
--- NOTE | 2018-11-24 10:23 | OR ---
DATE OF PROCEDURE: 11/24/2018 POSTOPERATIVE CARE: Postoperative care will be provided mainly at the [address] [place] [address] [facility] in conjunction with [facility]. PREOPERATIVE DIAGNOSIS: Cataract, right eye. POSTOPERATIVE DIAGNOSIS: Cataract, right eye. PROCEDURE: Phacoemulsification with intraocular lens placement, right eye. ANESTHESIA: Topical and intracameral. ESTIMATED BLOOD LOSS: Minimal. COMPLICATIONS: None. PATHOLOGY SPECIMENS: None. SURGICAL FINDINGS: None. INDICATION FOR PROCEDURE: The patient is a 58-year-old male with history of a visually significant cataract in the right eye, which interfered with activities of daily living. This consisted of a nuclear sclerosis cataract. Following careful discussion of the risks, benefits and alternatives to cataract extraction with intraocular lens placement including blindness and , the patient elected to proceed, and informed, written consent was obtained prior to the procedure. DESCRIPTION OF THE PROCEDURE: The patient was previously identified, and a slava placed above the right eye. All sources, including the patient, indicated that the right eye was the correct eye. The patient was subsequently taken to the operating room where standard monitors were applied. The patient was then prepped and draped in the usual sterile fashion for ophthalmic surgery. Attention was first directed at the 12 o'clock position where a paracentesis port was fashioned. Shugar solution followed by Viscoat was instilled into the eye. Attention was then directed to the 8:30 position where a triplanar incision was made in a near-clear manner using a keratome. A continuous capsulorrhexis was then made using a combination of the cystotome and Utrata forceps. Hydrodissection was achieved using a balanced salt solution, and the lens rotated nicely. Phacoemulsification was then done using a modified [id number] technique without complication. Phaco time was 5.90 CDE. The remaining cortex was removed using the irrigation/aspiration handpiece. Provisc was then instilled into the eye. A Technis lens, model [id number], at 18.5 Diopter lens was then placed in the capsular bag using an [place] injector. The remaining viscoelastic was removed using the irrigation/aspiration forceps. All wounds were then checked and found to be watertight. The lid speculum and drapes were removed. Maxitrol ointment was placed in the patient's right eye, and the eye was shielded. The patient tolerated the procedure well. The patient was instructed to follow up tomorrow. All needle and sponge counts were correct at the end of the procedure. There were no surgical findings. Farrah Rutledge MD /[id number]
== END 2018-11-24 09:40 | disposition home or self-care (01) ==
LOC: JP.SDS 07:12
PROVIDERS: ATTEND Ophthalmology
DX: H25.11 Age-related nuclear cataract, right eye (principal); I10 Essential (primary) hypertension; F17.200 Nicotine dependence, unspecified, uncomplicated
CPT/HCPCS: 66984; V2632

== ENCOUNTER 2018-12-15 07:21 | Day surgery (SDC) | payer MEDICAID ==
[2018-12-15] MEDS ORDERED: Sodium Chloride 0.9% 10 ML Syringe FLUSH PRN (08:00)
--- NOTE | 2018-12-15 14:19 | OR ---
DATE OF PROCEDURE: 12/15/2018 POSTOPERATIVE CARE: Postoperative care will be provided mainly at the [address] [place] [address] [facility] in conjunction with [facility]. PREOPERATIVE DIAGNOSIS: Cataract, left eye. POSTOPERATIVE DIAGNOSIS: Cataract, left eye. PROCEDURE: Phacoemulsification with intraocular lens placement, left eye. ANESTHESIA: Topical and intracameral. ESTIMATED BLOOD LOSS: Minimal. COMPLICATIONS: None. PATHOLOGY SPECIMENS: None. SURGICAL FINDINGS: None. INDICATION FOR PROCEDURE: The patient is a 58-year-old male with history of a visually significant cataract in the left eye, which interfered with activities of daily living. This consisted of a nuclear sclerosis cataract. Following careful discussion of the risks, benefits and alternatives to cataract extraction with intraocular lens placement including blindness and , the patient elected to proceed, and informed, written consent was obtained prior to the procedure. DESCRIPTION OF THE PROCEDURE: The patient was previously identified, and a slava placed above the left eye. All sources, including the patient, indicated that the left eye was the correct eye. The patient was subsequently taken to the operating room where standard monitors were applied. The patient was then prepped and draped in the usual sterile fashion for ophthalmic surgery. Attention was first directed at the 12 o'clock position where a paracentesis port was fashioned. Shugar solution followed by Viscoat was instilled into the eye. Attention was then directed to the 8:30 position where a triplanar incision was made in a near-clear manner using a keratome. A continuous capsulorrhexis was then made using a combination of the cystotome and Utrata forceps. Hydrodissection was achieved using a balanced salt solution, and the lens rotated nicely. Phacoemulsification was then done using a modified [id number] technique without complication. Phaco time was 4.44 CDE. The remaining cortex was removed using the irrigation/aspiration handpiece. Provisc was then instilled into the eye. A Technis lens, model [id number], at 18.0 diopters was then placed in the capsular bag using an [place] injector. The remaining viscoelastic was removed using the irrigation/aspiration forceps. All wounds were then checked and found to be watertight. The lid speculum and drapes were removed. Maxitrol ointment was placed in the patient's left eye, and the eye was shielded. The patient tolerated the procedure well. The patient was instructed to follow up tomorrow. All needle and sponge counts were correct at the end of the procedure. No surgical findings. Farrah Rutledge MD /[id number]
== END 2018-12-15 09:25 | disposition home or self-care (01) ==
LOC: JP.SDS 07:21
PROVIDERS: ATTEND Ophthalmology
DX: H25.12 Age-related nuclear cataract, left eye (principal); I10 Essential (primary) hypertension; F17.200 Nicotine dependence, unspecified, uncomplicated
CPT/HCPCS: C1780

== ENCOUNTER 2019-03-04 08:23 | Emergency (ER) | payer MEDICAID ==
[2019-03-04] MEDS ORDERED: Aspirin 81 MG Tab.Chew PO ONE (08:25)
[2019-03-04] MEDS ORDERED: Sodium Chloride 0.9% 10 ML Syringe FLUSH PRN (08:29)
--- NOTE | 2019-03-04 08:30 | EDM.PDOC ---
ED HPI GENERAL MEDICAL PROBLEM - General Chief Complaint: Cardiovascular Problem Stated Complaint: HEART ISSUES Time Seen by Provider: 03/04/19 08:25 Source of Information: Reports: Patient, Old Records History Limitations: Reports: No Limitations - History of Present Illness INITIAL COMMENTS - FREE TEXT/NARRATIVE: 58 yo male smoker presents with central chest pain that won't go away today. He has been getting this on and off for about a month usually in association with eating. Today he ate a light breakfast and the pain started but now won't go away. At home he had SOB, nausea and diaphoresis. These sx's are gone now but the pain persists. He has a hx of HTN and has not missed any of his meds. His father had an [place] in his late 60's and was a smoker. Elieser has no previous hx of CAD. He is not diabetic. He was not aware of exertion changing his sx's. Onset: Today Onset Date: 03/04/19 Onset Time: 07:20 Duration: Minutes:, Constant Location: Reports: Chest (low, central) Quality: Reports: Other (not able to describe) Severity: Moderate Improves with: Reports: None Worsens with: Reports: Eating (?) Context: Reports: Other (See HPI) Associated Symptoms: Reports: Chest Pain (since onset this morning), Diaphoresis (not now), Nausea/Vomiting (no vomiting, nausea gone now), Shortness of Breath (not now). Denies: Cough, Fever/Chills Treatments PIER RUNNER: Reports: Other (see below) (antacids) chest Pain Score (Numeric/FACES): 5 - Related Data Allergies Allergy/AdvReac Type Severity Reaction Status Date / Time No Known Allergies Allergy Verified 03/04/19 08:34 Home Meds: Home Meds Lisinopril 20 mg PO BID 11/21/18 [History] Multivitamin with Minerals [Multiple Vitamin] 1 tab PO DAILY 11/21/18 [History] Past Medical History - Past Health History Medical/Surgical History: Denies Medical/Surgical History HEENT History: Reports: Cataract, Macular Degeneration Cardiovascular History: Reports: Hypertension Musculoskeletal History: Reports: Other (See Below) Other Musculoskeletal History: chronic inflammatory demyelinating polyneuropathy Neurological History: Reports: CVA, Other (See Below) Other Neuro History: bilat leg pain - "neurological problem" - Infectious Disease History Infectious Disease History: Reports: Chicken Pox - Past Surgical History HEENT Surgical History: Reports: Cataract Surgery Cardiovascular Surgical History: Reports: None Neurological Surgical History: Reports: None Musculoskeletal Surgical History: Reports: None Dermatological Surgical History: Reports: None Social & Family History - Family History Family Medical History: Noncontributory Cardiac: Reports: CAD - Caffeine Use Caffeine Use: Reports: Coffee ED ROS GENERAL - Review of Systems Review Of Systems: See Below Constitutional: Reports: No Symptoms HEENT: Reports: No Symptoms Respiratory: Reports: Shortness of Breath (not now). Denies: Wheezing, Cough, Sputum, Hemoptysis Cardiovascular: Reports: Chest Pain (this morning). Denies: Dyspnea on Exertion , Edema, Lightheadedness, Orthopnea, Palpitations, PND, Syncope Endocrine: Reports: No Symptoms GI/Abdominal: Reports: Nausea (not currently). Denies: Abdominal Pain, Black Stool, Bloody Stool, Constipation, Diarrhea, Distension, Flatus, Hematemesis, Hematochezia, Vomiting : Reports: No Symptoms Musculoskeletal: Reports: No Symptoms Skin: Reports: Diaphoresis (resolved before arrival) Neurological: Reports: No Symptoms Psychiatric: Reports: No Symptoms ED EXAM, GENERAL - Physical Exam Exam: See Below Exam Limited By: No Limitations General Appearance: Alert, WD/WN, No Apparent Distress, Other (appears older than his stated age.) Eye Exam: Bilateral Eye: Normal Inspection Ears: Normal External Exam, Normal Canal, Hearing Grossly Normal Ear Exam: Bilateral Ear: Auricle Normal, Canal Normal Nose: Normal Inspection, No Blood Throat/Mouth: Normal Inspection, Normal Lips, Normal Oropharynx, Normal Voice, No Airway Compromise Head: Atraumatic, Normocephalic Neck: Normal Inspection Respiratory/Chest: No Respiratory Distress, Lungs Clear, Normal Breath Sounds, No Accessory Muscle Use Cardiovascular: Regular Rate, Rhythm, No Edema, Tachycardia GI/Abdominal: Normal Bowel Sounds, Soft, Non-Tender, No Distention. No: Distended, Guarding, Rigid, Rebound, Tender Back Exam: Normal Inspection Extremities: Normal Inspection, Normal Range of Motion, Non-Tender, No Pedal Edema, Other (decreased pulses in both feet). No: Pedal Edema Neurological: Alert, Oriented, CN II-XII Intact, Normal Cognition, No Motor/ Sensory Deficits Psychiatric: Normal Affect, Normal Mood Skin Exam: Warm, Dry, Intact, Normal Color, No Rash Lymphatic: No Adenopathy EKG INTERPRETATION EKG Date: 03/04/19 Time: 08:25 Rhythm: NSR Rate (Beats/Min): 105 Tracy: Normal P-Wave: Present QRS: Normal ST-T: Elevated (V1-V3) QT: Normal Comparison: NA - No Prior EKG Course - Vital Signs Last Recorded V/S: Last Vital Signs Temp 35.9 C 03/04/19 08:32 Pulse 100 03/04/19 08:45 Resp 18 03/04/19 08:32 BP 172/110 H 03/04/19 08:49 Pulse Ox 99 03/04/19 08:32 - Orders/Labs/Meds Orders: Active Orders 24 hr Category Date Time Status Cardiac Monitoring [RC] .As Directed Care 03/04/19 08:24 Active EKG Documentation Completion [RC] ASDIRECTED Care 03/04/19 08:25 Active EKG Documentation Completion [RC] ASDIRECTED Care 03/04/19 08:54 Active UA W/MICROSCOPIC [URIN] Stat Lab 03/04/19 08:29 Ordered Nitroglycerin [Nitrostat] Med 03/04/19 08:32 Active 0.4 mg SL Q5M PRN Sodium Chloride 0.9% [Saline Flush] Med 03/04/19 08:29 Active 10 ml FLUSH ASDIRECTED PRN Saline Lock Insert [OM.PC] Routine Oth 03/04/19 08:29 Ordered EKG 12 Lead [EK] Routine Ther 03/04/19 08:25 Ordered EKG 12 Lead [EK] Routine Ther 03/04/19 08:54 Ordered Medication Orders Nitroglycerin (Nitrostat) 0.4 mg SL Q5M PRN PRN Reason: Chest Pain Last Admin: 03/04/19 08:49 Dose: 0.4 mg Sodium Chloride (Saline Flush) 10 ml FLUSH ASDIRECTED PRN PRN Reason: Keep Vein Open Labs: Laboratory Tests 03/04/19 03/04/19 Range/Units 08:37 08:37 WBC 8.9 (4.5-11.0) K/uL RBC 5.20 (4.30-5.90) M/uL Hgb 15.5 H (12.0-15.0) g/dL Hct 45.7 (40.0-54.0) % MCV 88 (80-98) fL MCH 30 (27-31) pg MCHC 34 (32-36) % Plt Count 218 (150-400) K/uL Sodium 142 (140-148) mmol/L Potassium 4.0 (3.6-5.2) mmol/L Chloride 104 (100-108) mmol/L Carbon Dioxide 25 (21-32) mmol/L Anion Gap 13.3 (5.0-14.0) mmol/L BUN 17 D (7-18) mg/dL Creatinine 1.0 (0.8-1.3) mg/dL Est Cr Clr Drug Dosing 91.22 mL/min Estimated GFR (MDRD) > 60 (>60) Glucose 117 H (74-106) mg/dL Calcium 10.0 D (8.5-10.1) mg/dL Troponin I 0.046 (0.000-0.056) ng/mL Meds: Medications Generic Name Dose Route Start Last Admin Trade Name Freq PRN Reason Stop Dose Admin Nitroglycerin 0.4 mg 03/04/19 08:32 03/04/19 08:49 Nitrostat SL 0.4 mg Q5M PRN Administration Chest Pain Sodium Chloride 10 ml 03/04/19 08:29 Saline Flush FLUSH ASDIRECTED PRN Keep Vein Open Discontinued Medications Generic Name Dose Route Start Last Admin Trade Name Freq PRN Reason Stop Dose Admin Al Hydroxide/Mg Hydroxide 30 ml 03/04/19 08:42 03/04/19 08:49 Mag-Al Plus PO 03/04/19 08:43 30 ml ONETIME ONE Administration Aspirin 324 mg 03/04/19 08:25 03/04/19 08:45 Aspirin PO 03/04/19 08:26 324 mg ONETIME ONE Administration Clopidogrel Bisulfate 600 mg 03/04/19 08:38 03/04/19 08:46 Plavix PO 03/04/19 08:39 600 mg ONETIME ONE Administration Heparin Sodium (Porcine) 4,000 units 03/04/19 09:06 03/04/19 09:10 Heparin Sodium IVPUSH 03/04/19 09:07 4,000 units ONETIME ONE Administration Metoprolol Tartrate 50 mg 03/04/19 08:32 03/04/19 08:45 Lopressor PO 03/04/19 08:33 50 mg ONETIME ONE Administration Morphine Sulfate 4 mg 03/04/19 08:54 03/04/19 08:59 Morphine IVPUSH 03/04/19 08:55 4 mg ONETIME ONE Administration - Re-Assessments/Exams Free Text/Narrative Re-Assessment/Exam: 03/04/19 09:12 Minimal relief with our interventions. Dr. Beltran, cardiology, [place], has accepted @ [facility]. Departure - Departure Time of Disposition: 09:25 Disposition: DC/Tfer to Acute Hospital 02 Reason for Transfer *Q: Primary PCI Indicated Clinical Impression: Tobacco abuse STEMI (ST elevation myocardial infarction) Qualifiers: Involved coronary artery: unspecified coronary artery Qualified Code(s): I21.3 - ST elevation (STEMI) myocardial infarction of unspecified site Referrals: PCP,None [Primary Care Provider] - Forms: ED Department Discharge - My Orders Last 24 Hours: My Active Orders 03/04/19 08:24 Cardiac Monitoring [RC] .As Directed 03/04/19 08:25 EKG Documentation Completion [RC] ASDIRECTED EKG 12 Lead [EK] Routine 03/04/19 08:29 UA W/MICROSCOPIC [URIN] Stat Sodium Chloride 0.9% [Saline Flush] 10 ml FLUSH ASDIRECTED PRN Saline Lock Insert [OM.PC] Routine 03/04/19 08:32 Nitroglycerin [Nitrostat] 0.4 mg SL Q5M PRN 03/04/19 08:54 EKG Documentation Completion [RC] ASDIRECTED EKG 12 Lead [EK] Routine - Assessment/Plan Last 24 Hours: My Active Orders 03/04/19 08:24 Cardiac Monitoring [RC] .As Directed 03/04/19 08:25 EKG Documentation Completion [RC] ASDIRECTED EKG 12 Lead [EK] Routine 03/04/19 08:29 UA W/MICROSCOPIC [URIN] Stat Sodium Chloride 0.9% [Saline Flush] 10 ml FLUSH ASDIRECTED PRN Saline Lock Insert [OM.PC] Routine 03/04/19 08:32 Nitroglycerin [Nitrostat] 0.4 mg SL Q5M PRN 03/04/19 08:54 EKG Documentation Completion [RC] ASDIRECTED EKG 12 Lead [EK] Routine
[2019-03-04] MEDS ORDERED: Nitroglycerin 0.4 MG Tab.SL SL PRN (08:32)
[2019-03-04] MEDS ORDERED: Metoprolol Tartrate 50 MG Tab PO ONE (08:32)
[2019-03-04] MEDS ORDERED: Clopidogrel 75 MG Tab PO ONE (08:38)
[2019-03-04] MEDS ORDERED: Aluminum Hydroxide/Magnesium Hydroxide/Simethicone Susp 30 ML Cup PO ONE (08:42)
[2019-03-04] MEDS ORDERED: Morphine 4 MG/ML Syringe IVPUSH ONE (08:54)
[2019-03-04] MEDS ORDERED: Heparin Sodium 5,000 Units/ML Vial IVPUSH ONE (09:06)
[2019-03-04] MEDS ORDERED: Heparin Sodium/D5W 25,000 UNITS/500 ML BAG IV SCH (09:15)
--- OUTSIDE RECORDS SUMMARY | 2019-03-08 13:59 | XMSREPORT | Summary of Care ---
:1960 Author Organization [facility] Address [address] [place] [address] Care Team Providers Name Role Phone Alfred Espana MD Primary Care Provider Provider, No Attributed RESOURCE Attributed Provider Unavailable Reason for Visit Auth/Cert Status Reason Specialty Diagnoses / Procedures Referred By Contact Referred To Contact Encounter Details Date Type Department Care Team Description 03/04/2019 - Hospital Encounter [facility] Coty Oropeza, ST elevation 03/06/2019 [facility] myocardial [facility] Unit [address] infarction involving [address] left anterior [place] [address] [place] descending (LAD) [phone] [id number] coronary artery [phone] (HCC) Allergies No Known Allergiesdocumented as of this encounter (statuses as of 03/06/2019) Medications Medication Sig Dispensed Refills Start Date End Date Status lisinopril Take 1 tablet 180 tablet 1 11/08/2018 Active (PRINIVIL, ZESTRIL) (20 mg) by 20 mg mouth 2 times tabletIndications: a day Essential hypertension Multiple Take 1 tablet 0 Active Vitamins-Minerals by mouth 1 (EYE VITAMINS PO) time per day aspirin (ECOTRIN LOW Take 1 tablet 30 tablet 0 03/07/2019 Active STRENGTH) 81 MG (81 mg) by enteric coated mouth 1 time tabletIndications: per day ST elevation myocardial infarction involving left anterior descending (LAD) coronary artery (HCC) nitroglycerin Dissolve 1 25 tablet 0 03/06/2019 Active (NITROSTAT) 0.4 mg tablet (0.4 sublingual mg) under the tabletIndications: tongue Every 5 ST elevation minutes as myocardial needed for infarction involving chest pain for left anterior up to 25 doses descending (LAD) coronary artery (HCC) atorvaSTATin Take 1 tablet 90 tablet 4 03/07/2019 Active (LIPITOR) 80 mg (80 mg) by 0 tabletIndications: mouth [address] elevation per day myocardial infarction involving left anterior descending (LAD) coronary artery (HCC) metoprolol succinate Take 1 tablet 90 tablet 1 03/07/2019 Active (TOPROL XL) 50 mg SR (50 mg) by 9 tablet (24 mouth 1 time hr)Indications: ST per day elevation myocardial infarction involving left anterior descending (LAD) coronary artery (HCC) ticagrelor Take 1 tablet 60 tablet 11 03/06/2019 Active (BRILINTA) 90 mg (90 mg) by tabletIndications: mouth [address] elevation a day myocardial infarction involving left anterior descending (LAD) coronary artery (HCC) Multiple Vitamin Take 1 tablet 0 07/25/2013 Discontinued (MULTI-DAY) TABS by mouth 1 9 time per day prednisoLONE acetate 1 drop in 1 Bottle 2 10/14/2018 Discontinued (PRED FORTE) 1 % RIGHT eye 9 ophthalmic 4x/day x 30 suspensionIndication days. Start s: Age-related day of nuclear cataract of surgery. 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 I discussed with Elieser. I recommend increasing his OTC reading glasses to +2.50. Decreased vision 12/01/2017 Last Assessment & Plan: Vision has improved significantly since his appointment with Dr. Rutledge (BCVA 20 /25 today compared to 20/150 on 12/01/2017). The following devices were recommended to help Elieser meet his low vision goals: +2.50 OTC reading glasses Bright direct task lighting - print needs to be 3 times as big for Elieser to see at low contrast. At this time, Elieser meets the vision requirement for driving in [place]. I discussed with him and his brother. He was advised to hold off on driving until after neurology appointment. Nonexudative age-related macular degeneration, bilateral, stage 12/01/2017 unspecified documented as of this encounter (statuses as of 03/06/2019) Resolved Problems Problem Noted Date Resolved Date Age-related nuclear cataract of both eyes 12/01/2017 12/15/2018 documented as of this encounter (statuses as of 03/06/2019) Immunizations Name Dates Previously Given Next Due FLU VACCINE SINGLE 11/08/2018 DOSE(3YR+Fluzone,6MO+Flulaval/Fluarix,5YR+Afluria) documented as of this encounter Social History Tobacco Use Types Packs/Day Years Used Date Current Every Day Smoker 0.5 Smokeless Tobacco: Former User Chew Comments: down to 6-7 a day Alcohol Use Drinks/Week oz/Week Comments No Sex Assigned at Date Recorded Not on file Job Start Date Occupation Industry Not on file Not on file Not on file Travel History Travel Start Travel End No recent travel history available. documented as of this encounter Last Filed Vital Signs Vital Sign Reading Time Taken Blood Pressure 111/65 03/06/2019 8:00 AM CDT Pulse 84 03/06/2019 8:00 AM CDT Temperature 36.5 C (97.7 F) 03/06/2019 8:00 AM CDT Respiratory Rate 16 03/06/2019 8:00 AM CDT Oxygen Saturation 95% 03/06/2019 8:00 AM CDT Inhaled Oxygen Concentration - - Weight 82.8 kg (182 lb 8.7 oz) 03/05/2019 4:00 AM CDT Height 185.4 cm (6' 1") 03/04/2019 12:27 PM CDT Body Mass Index 24.08 03/05/2019 4:00 AM CDT documented in this encounter Functional Status Functional Status Response Date of Assessment Is the person deaf or does he/she have serious difficulty No 03/04/2019 hearing? Is this person blind or does he/she have difficulty No 03/04/2019 seeing even when wearing glasses? Do you have difficulty with walking, balance, climbing No 03/04/2019 stairs, or had a fall in the last 3 months? Does the patient have difficulty dressing or bathing? No 03/04/2019 Because of a physical, mental, or emotional condition; No 03/04/2019 does this person have difficulty doing errands alone such as visiting a doctor's office or shopping? Cognitive Status Response Date of Assessment Because of a physical, mental, or emotional condition; No 03/04/2019 does this person have serious difficulty concentrating, remembering, or making decisions? documented as of this encounter Discharge Instructions Stoney Marroquin RN - 03/06/2019 Patient Education Nitroglycerin Oral capsule, extended-release Nitroglycerin Oral tablet, extended-release Nitroglycerin Rectal ointment Nitroglycerin Solution for injection Nitroglycerin Sublingual tablet Nitroglycerin Sublingual/Translingual spray Nitroglycerin Topical ointment Nitroglycerin Transdermal patch - 24 hour Nitroglycerin, Dextrose Solution for injection Nitroglycerin Sublingual tablet What is this medicine? NITROGLYCERIN (haven troe GLI ser in) is a type of vasodilator. It relaxes blood vessels, increasing the blood and oxygen supply to your heart. This medicine is used to relieve chest pain caused by angina. It is also used to prevent chest pain before activities like climbing stairs, going outdoors in cold weather, or sexual activity. This medicine may be used for other purposes; ask your health care provider or pharmacist if you have questions. What should I tell my health care provider before I take this medicine? They need to know if you have any of these conditions: anemia head injury, recent stroke, or bleeding in the brain liver disease previous heart attack an unusual or allergic reaction to nitroglycerin, other medicines, foods, dyes, or preservatives or trying to get breast-feeding How should I use this medicine? Take this medicine by mouth as needed. At the first sign of an angina attack ( chest pain or tightness) place one tablet under your tongue. You can also take this medicine 5 to 10 minutes before an event likely to produce chest pain. Follow the directions on the prescription label. Let the tablet dissolve under the tongue. Do not swallow whole. Replace the dose if you accidentally swallow it. It will help if your mouth is not dry. Saliva around the tablet will help it to dissolve more quickly. Do noteat or drink, smoke or chew tobacco while a tablet is dissolving. If you are not better within 5 minutes after taking ONE dose of nitroglycerin, call [phone]- immediately to seek emergency medical care. Do not take more than 3 nitroglycerin tablets over 15 minutes. If you take this medicine often to relieve symptoms of angina, your doctor or health health care / medical job titles may provide you with different instructions to manage your symptoms. If symptoms do not go away after following these instructions, it is important to call [phone]--[phone] immediately. Do not take more than 3 nitroglycerin tablets over 15 minutes. Talk to your pole cutter regarding the use of this medicine in children. Special care may be needed. Overdosage: If you think you have taken too much of this medicine contact a poison control center [facility] room at once. NOTE: This medicine is only for you. Do not share this medicine with others. What if I miss a dose? This does not apply. This medicine is only used as needed. What may interact with this medicine? Do not take this medicine with any of the following medications: certain migraine medicines like ergotamine and dihydroergotamine (DHE) medicines used to treat erectile dysfunction like sildenafil, tadalafil, and vardenafil riociguat This medicine may also interact with the following medications: alteplase aspirin heparin medicines for high blood pressure medicines for mental depression other medicines used to treat angina phenothiazines like chlorpromazine, mesoridazine, prochlorperazine, thioridazine This list may not describe all possible interactions. Give your health care provider a list of all the medicines, herbs, non-prescription drugs, or dietary supplements you use. Also tell them if you smoke, drink alcohol, or use illegal drugs. Some items may interact with your medicine. What should I watch for while using this medicine? Tell your doctor or health health care / medical job titles if you feel your medicine is no longer working. Keep this medicine with you at all times. Sit or lie down when you take your medicine to prevent falling if you feel dizzy or faint after using it. Try to remain calm. This will help you to feel betterfaster. If you feel dizzy, take several deep breaths and lie down with your feet propped up, or bendforward with your head resting between your knees. You may get drowsy or dizzy. Do not drive, use machinery, or do anything that needs mental alertnessuntil you know how this drug affects you. Do not stand or sit up quickly, especially if you are an older patient. This reduces the risk of dizzy or fainting spells. Alcohol can make you more drowsy anddizzy. Avoid alcoholic drinks. Do not treat yourself for coughs, colds, or pain while you are taking this medicine without asking your doctor or health health care / medical job titles for advice. Some ingredients may increase your blood pressure. What side effects may I notice from receiving this medicine? Side effects that you should report to your doctor or health health care / medical job titles as soon as possible: blurred vision dry mouth skin rash sweating the feeling of extreme pressure in the head unusually weak or tired Side effects that usually do not require medical attention (report to your doctor or health health care / medical job titles if they continue or are bothersome): flushing of the face or neck headache irregular heartbeat, palpitations nausea, vomiting This list may not describe all possible side effects. Call your doctor for medical advice about sideeffects. You may report side effects to FDA at 6-030- RTJ-9564. Where should I keep my medicine? Keep out of the reach of children. Store at room temperature between 20 and 25 degrees C (68 and 77 degrees F). Store in original container. Protect from light and moisture. Keep tightly closed. Throw away any unused medicine after the expiration date. NOTE:This sheet is a summary. It may not cover all possible information. If you have questions aboutthis medicine, talk to your doctor, pharmacist, or health care provider. Copyright 2018 [employer] Post Cardiac Catheterization Home Care Instructions Discharge Instructions If there is some bruising at the needle site after your procedure, it may take a week or longer for it to disappear. The bruise will change colors before it disappears. You may also feel a hard marble-size or pea-size lump and mild tenderness at the site. This is scar tissue and it will go away over time. If any of the following occur, apply direct pressure to the site for at least ten minutes and call your healthcare provider immediately. ? Bright red blood coming from the puncture site ? A hematoma at the puncture site-bleeding under the skin that causes swelling along with a feeling of pressure or pain at the groin area ? A large amount of bruising or firmness at the puncture site ? Puffiness or swelling at the puncture site that is getting bigger and pulsating with each heart beat Call your healthcare provider if you notice any of the following: ? Call immediately if you notice circulation changes-such as a weak, numb, cold , painful, pale, or bluish leg or arm ? A new blue or purple discoloration at the puncture site and the surrounding areas ? Rash ? Persistent tenderness or swelling at the site ? Signs of infection o A very red, warm, or hot to the touch area where the needle was inserted o Fever or chills o Drainage from the puncture site (other than a small amount of blood) During the next week ? Do not jog, play contact sports, vacuum, shovel, mow lawn, or participate in any other type of rough activity. You may resume walking as an exercise 48 hours after the procedure. ? Do not sit for more than two to three hours at a time on the day of the procedure. There are no sitting limits after that. ? Do not drive for 24 hours after the procedure. ? Do not lift objects weighing more than 10 pounds for 72 hours after the procedure. ? Do not push or pull anything heavy, such as furniture. ? Clean the puncture site daily with warm water and mild soap. You may shower 24 hours after the procedure. Do not scrub the site hard as it may cause bleeding. Do not use a hot tub, tub bath, or swim until the site is healed. ? You may use a Band-Aid over the puncture site if clothing rubs against it and causes discomfort. If you use a Band-Aid, it should be removed daily and a new Band-Aid applied. ? You may resume sexual activity 72 hours after the procedure. If you have had a recent heart attack, follow the recommendations you received from your doctor or the Cardiac Rehabilitation Team. ? Apply support to the puncture site if you have to cough, sneeze, or are doing a lot of laughing. ? Take your medications as directed. Do not stop taking medications without checking with your doctor. Feeling better does not mean you can stop taking your medicine. If you have any questions, please call the [facility] Cardiology Department at [phone]. documented in this encounter Progress Notes Coty Oropeza MD - 03/05/2019 8:24 AM CDT Cardiology Daily Progress Notes ID: Elieser Salcido is a 58yr old male with PMH of hypertension admitted on 03/04/2019 for STEMI. No chest pain, shortness of breath, palpitation Assessment and Plan Cardiology: 1. Chest pain: anterior ST-segment elevation myocardial infarction (STEMI): post PCI proximal to distal LAD 2. Acute heart failure, LVEF 30% with apical hypokinesis, need rule out apical thrombosis, systolic and diastolic heart failure, [place] [employer] Association class III, stage II C, euvolemic 3. Essential HTN 4. HLD Plan: ECG resolving Increase Toprol-XL to 50 mg daily Dual antiplatelet therapy: on Aspirin and ticagrelor Transfer to telemetry floor from ICU Review of Systems Constitutional: (-) TILLEY, f/c, CV: (-) CP, palpitations, Resp: (-) dyspnea, coughing/wheezing GI: (-) nausea, vomiting, diarrhea, constipation, melena, hematochezia Current Medications: Current medications have been reviewed. Current Facility-Administered Medications Medication Dose Route Frequency metoprolol succinate (TOPROL XL) SR tablet (24 hr) 50 mg 50 mg Oral Daily atorvaSTATin (LIPITOR) tablet 80 mg 80 mg Oral Daily gabapentin (NEURONTIN) capsule 100 mg 100 mg Oral 2 times a day lisinopril (PRINIVIL, ZESTRIL) tablet 20 mg 20 mg Oral 2 times a day acetaminophen (TYLENOL) tablet 650 mg 650 mg Oral Every 4 hours prn morphine injection solution (conc: 2 mg/mL) 2 mg 2 mg IV Every 10 minutes prn nitroglycerin (NITROSTAT) sublingual tablet 0.4 mg 0.4 mg Sublingual Every 5 minutes prn aspirin enteric coated tablet 81 mg 81 mg Oral Daily atropine sulfate (1 mg/10mL) injection solution 0.5 mg 0.5 mg IV Every 5 minutes prn ticagrelor (BRILINTA) tablet 90 mg 90 mg Oral 2 times a day Allergies Allergies have been reviewed. has No Known Allergies. Current Vitals Temp: 98.5 F (36.9 C)BP: 123/85 BP Limb site: Left upper arm Pulse: 71Resp: 28 Weight: 82.8 kg (182 lb 8.7 oz) SpO2: 98 % Input and Output: 24 hour Intake/Output / 0700 - 03/05 0659 In: 1020 [Oral:120] Out: 2200 [Urine:2200] Physical Exam General Appearance: alert, well appearing, and in no distress Mental Status: alert, oriented to person, place, and time HEENT: ATNC, EOMI, No oral lesions, Chest: Symmetrical chest expansion and air entry, no wheeze or crackles. Heart: RRR, dual heart sounds, no murmurs, rubs, clicks or gallops. JVPNE, no carotid bruit. right radial access site clean Abdomen: soft, nontender, nondistended, no masses or organomegaly Neurological: alert, oriented, normal speech, no focal findings Extremities: peripheral pulses normal, no pedal edema. Diagnostics and Labs Relevant diagnostic, laboratory and radiological studies have been reviewed in the Electronic Medical Record. Lab Results Component Value Date WBC 12.5 (H) 03/04/2019 RBC 4.78 03/04/2019 HEMOGLOBIN 14.8 03/04/2019 HEMATOCRIT 41.2 03/04/2019 MCV 86.2 03/04/2019 MCH 31.0 03/04/2019 MCHC 35.9 03/04/2019 PLTCOUNT 209 03/04/2019 NEUTROPCT 74.3 03/04/2019 LYMPHSPCT 19.9 03/04/2019 MONOSPCT 4.9 03/04/2019 EOSPCT 0.4 03/04/2019 BASOPHILPCT 0.3 03/04/2019 Lab Results Component Value Date ALBUMIN 4.0 03/04/2019 BILITOTAL 1.0 03/04/2019 CA 9.3 03/04/2019 CL 110 03/04/2019 CREATSERUM 0.82 03/04/2019 GLUCOSE 103 (H) 03/04/2019 ALKPHOS 61 03/04/2019 POTASSIUM 4.1 03/04/2019 NA 139 03/04/2019 AST 90 (H) 03/04/2019 BUN 13 03/04/2019 PROTEINTOTAL 6.7 03/04/2019 CO2 20 (L) 03/04/2019 ALT 30 03/04/2019 No results found for: PT, INR No results found for: APTT Lab Results Component Value Date CHOLESTEROL 208 (H) 03/04/2019 HDLCHOL 54 03/04/2019 LDL 143 (H) 03/04/2019 TRIGLYCERIDE 53 03/04/2019 Lab Results Component Value Date HGBA1C 5.6 03/04/2019 Lab Results Component Value Date CK 93 05/30/2018 TROPONINI 24.02 (HH) 03/05/2019 No results found for: TSH Interpretation Summary None Thank you very much for the opportunity to participate in the care of this pleasant and interesting patient. Coty Oropeza MD [facility] [place] documented in this encounter Plan of Treatment Date Type Specialty Care Team Description 03/13/2019 Office Visit Family Practice Alfred Espana MD [address] [place] [address] 03/21/2019 Office Visit CARDIOLOGY Coty Oropeza MD [address] [place] [address] 07/14/2019 Office Visit Neurology Jeremy James MD [address] [place] [address] Health Maintenance Due Date Last Done Comments Hepatitis C Screening 1960 HIV One Time Screening Ages 15-65 1973 Tetanus Vaccine 1976 Pneumococcal 19-64yr Medium 1977 Risk(Category 1) (1 of 1 - PPSV23) Colorectal Cancer Screening 2008 Zoster Vaccine (1 of 2 - 2008 RZV,Shingrix) Annual Lung Screen 2013 Lipid Screening 03/04/2020 03/04/2019 Diabetes Screening 03/04/2022 03/04/2019, 03/04/2019, 06/16/2018, Additional history exists Influenza Vaccine Completed 11/08/2018 documented as of this encounter Procedures Procedure Name Priority Date/Time Associated Comments Diagnosis COLLECT AND HOLD PANEL Routine 03/06/2019 7:33 Results for this AM CDT procedure are in the results section. COLLECT AND HOLD SST Routine 03/06/2019 7:33 Results for this TOP TUBE AM CDT procedure are in the results section. COLLECT AND HOLD BLUE Routine 03/06/2019 7:33 Results for this (NACIT) TOP TUBE AM CDT procedure are in the results section. COLLECT AND HOLD Routine 03/06/2019 7:33 Results for this LAVENDER (EDTA) TOP AM CDT procedure are in TUBE the results section. TROPONIN I Routine 03/06/2019 7:33 Results for this AM CDT procedure are in the results section. ECHO ADULT LIMITED Routine 03/05/2019 12:56 Results for this PM CDT procedure are in the results section. COLLECT AND HOLD PANEL Routine 03/05/2019 7:20 Results for this AM CDT procedure are in the results section. COLLECT AND HOLD SST Routine 03/05/2019 7:20 Results for this TOP TUBE AM CDT procedure are in the results section. COLLECT AND HOLD BLUE Routine 03/05/2019 7:20 Results for this (NACIT) TOP TUBE AM CDT procedure are in the results section. COLLECT AND HOLD Routine 03/05/2019 7:20 Results for this LAVENDER (EDTA) TOP AM CDT procedure are in TUBE the results section. TROPONIN I Routine 03/05/2019 7:20 Results for this AM CDT procedure are in the results section. EKG Routine 03/05/2019 5:51 Results for this AM CDT procedure are in the results section. EKG JULIA 03/04/2019 2:08 Results for this PM CDT procedure are in the results section. ECHO ADULT COMPLETE STAT 03/04/2019 1:14 Results for this PM CDT procedure are in the results section. LAB ONLY-COMPLETE Routine 03/04/2019 12:33 Results for this BLOOD COUNT WITH PM CDT procedure are in DIFFERENTIAL the results section. LIPID PANEL Routine 03/04/2019 12:33 Results for this PM CDT procedure are in the results section. GLYCATED HEMOGLOBIN Routine 03/04/2019 12:33 Results for this PM CDT procedure are in the results section. TROPONIN I Routine 03/04/2019 12:33 Results for this PM CDT procedure are in the results section. COMPREHENSIVE Routine 03/04/2019 12:33 Results for this METABOLIC PANEL PM CDT procedure are in the results section. COMPLETE BLOOD COUNT Routine 03/04/2019 12:33 Results for this WITH DIFFERENTIAL PM CDT procedure are in the results section. BRAIN NATRIURETIC Routine 03/04/2019 12:33 Results for this PEPTIDE PM CDT procedure are in the results section. CARDIAC CATH POSSIBLE STAT 03/04/2019 10:12 Results for this ANGIOPLASTY STENT CATH AM CDT procedure are in LAB the results section. documented in this encounter Results COLLECT AND HOLD LAVENDER (EDTA) TOP TUBE (03/06/2019 7:33 AM CDT)Only the most recent of2 resultswithin the time period is included. Collect and Hold Specimen Comment: Received [facility] LABORATORY Specimen Blood - Blood Performing Organization Address [facility] Phone Number [facility] [address] [place], [place] [id number] LABORATORY COLLECT AND HOLD BLUE (NACIT) TOP TUBE (03/06/2019 7:33 AM CDT)Only the most recent of2 resultswithin the time period is included. Collect and Hold Specimen Comment: Received [facility] LABORATORY Specimen Blood - Blood Performing Organization Address [facility] Phone Number [facility] [address] [place], [place] [phone] LABORATORY COLLECT AND HOLD SST TOP TUBE (03/06/2019 7:33 AM CDT)Only the most recent of2 resultswithin the time period is included. Collect and Hold Specimen Comment: Received [facility] LABORATORY Specimen Blood - Blood Performing Organization Address [facility] Phone Number [facility] [address] [place], [place] [phone] LABORATORY TROPONIN I (03/06/2019 7:33 AM CDT)Only the most recent of3 resultswithin the time period is included. Troponin I 12.87 (HH) 0.00 - 0.03 ng/mL [facility] LABORATORY Specimen Blood - Blood Narrative Performed At The reference range represents the 99th [facility] LABORATORY percentile of the normal population.Diagnostic cutoff is 0.30 ng/mL. Performing Organization Address [facility] Phone Number [facility] [address] [place], [place] [address] [phone] LABORATORY ECHO ADULT LIMITED (03/05/2019 12:56 PM CDT) Narrative Performed At [facility] This summary may not be all inclusive and therefore may not be complete.Please view the entire report by clicking on Imaging Results link. Referring Provider:COTY OROPEZA Transthoracic Echocardiogram Transthoracic Echocardiogram [facility] Echocardiography Department [address] [place] [address] Transthoracic Echocardiogram Patient: ELIESER SALCIDO MR #: [id number] Exam date: 05-Mar-2019 : 1960 Gender: Male BP: 108/ 74 Height: 73 in 72.8 in Weight: 182 lb 182.6 lb BSA: 2.07 m squared 2.07 m squared HR: 56 bpm Location: [facility] Room:[id number] Status:InPatient Study time: 12 56 Reading Physician:COTY OROPEZA MD Referring Physician:COTY OROPEZA MD Adult Child Care Associate Teacher:MIGUEL A SOLIMAN RDCS Indications: STEMI. Procedure: The transthoracic approach was used. The study included limited 2D imaging. Intravenous contrast ( Definity, 3 ml) was administered to opacify the left ventricle. Summary: Procedure information: Intravenous contrast ( Definity, 3 ml) was administered to opacify the left ventricle. Left ventricle: Systolic function was moderately reduced by visual assessment. Ejection fraction was estimated to be 35 %. There was hypokinesis of the apical anterior, mid anteroseptal, and apical wall(s). No LV apical thrombosis. Comparisons: Comparison was made with the previous study of 04-Mar-2019. Left ventricle: Systolic function was moderately reduced by visual assessment. Ejection fraction was estimated to be 35 %. There was hypokinesis of the apical anterior, mid anteroseptal, and apical wall(s). No LV apical thrombosis. Details: The procedure was performed at the bedside. The housecleaner floor requested Definity injection. The patient denies contraindications and gives verbal consent for contrast injection. Definity intravenous contrast (1.3 ml of activated Definity diluted with 8.7 ml of normal saline) was used to evaluate left ventricular function to enhance endocardial border delineation. Definity was administered at 1315. Total amount of contrast given was 3 ml. Lot #[id number]. [facility] 42534-827-77. Prepared and electronically signed by COTY OROPEZA MD Signed Permanent chart copy 05-Mar-2019 13:37:44 Performing Organization Address City/State/Zipcode Phone Number [facility] EKG (03/05/2019 5:51 AM CDT)Only the most recent of2 resultswithin the time period is included. 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 :1960 Requested By: COTY OROPEZA Order Number: [id number] MD: Coty Oropeza Measurements IntervalsAxis Rate: 74 P: 61 SD: 162QRS: 35 QRSD: 96 T: 101 QT: 448 QTc:500 Interpretive Statements SINUS RHYTHM ANTERIOR MYOCARDIAL INFARCTION, PROBABLY RECENT Compared to ECG 03/04/2019 14:08:55 Myocardial infarct finding still present Electronically Signed On 03-05-2019 13:52:06 CDT by Coty Oropeza Performing Organization Address City/State/Zipcode Phone Number [place] ECHO ADULT COMPLETE (03/04/2019 1:14 PM CDT) Narrative Performed At [facility] This summary may not be all inclusive and therefore may not be complete.Please view the entire report by clicking on Imaging Results link. Referring Provider:COTY OROPEZA Transthoracic Echocardiogram Transthoracic Echocardiogram [facility] Echocardiography Department [address] [place] [address] Transthoracic Echocardiogram Patient: ELIESER SALCIDO MR #: [id number] Exam date: 04-Mar-2019 : 1960 Gender: Male BP: 142/ 85 Height: 72.8 in Weight: 180.4 lb BSA: 2.06 m squared HR: 74 bpm Location: [facility] Room:[id number] Status:InPatient Study time: Reading Physician:COTY OROPEZA MD Referring Physician:COTY OROPEZA MD Adult Child Care Associate Teacher:ROJELIO KENNEY Indications: STEMI. Procedure: The transthoracic approach was used. The study included complete 2D imaging, M-mode, complete spectral Doppler, and color Doppler. Summary: Left ventricle: Size was normal. Systolic function was markedly reduced by visual assessment. Ejection fraction was estimated to be 30 %. There was akinesis of the apical anterior, basal-mid anteroseptal, apical inferior, and apical wall(s). There was dyskinesis of the basal-mid inferoseptal wall(s). Wall thickness was normal. Features were consistent with a pseudonormal left ventricular filling pattern, with concomitant abnormal relaxation and increased filling pressure (moderate diastolic dysfunction). Mitral valve: There was trivial regurgitation. Left atrium: Size was normal. Right ventricle: The size was normal. Systolic function was normal. Pulmonary arteries: There was no pulmonary artery hypertension. Estimated pulmonary artery peak systolic pressure was 20 mmHg. Tricuspid valve: There was mild regurgitation. Right atrium: Size was normal. Comparisons: No previous study available for comparison. Left ventricle: Size was normal. Systolic function was markedly reduced by visual assessment. Ejection fraction was estimated to be 30 %. There was akinesis of the apical anterior, basal-mid anteroseptal, apical inferior, and apical wall(s). There was dyskinesis of the basal-mid inferoseptal wall(s). Wall thickness was normal. Doppler: Features were consistent with a pseudonormal left ventricular filling pattern, with concomitant abnormal relaxation and increased filling pressure (moderate diastolic dysfunction). Aortic valve: The valve was tricuspid. Aortic cusps demonstrated normal in thickness, mild calcification, normal cuspal separation, and sclerosis. Doppler: Transaortic velocity was within the normal range. There was no stenosis. There was no significant regurgitation. Aorta: The root exhibited normal size. The ascending aorta was normal in size. Mitral valve: Valve structure was normal. There was normal leaflet separation. Doppler: The transmitral velocity was within the normal range. There was no evidence for stenosis. There was trivial regurgitation. Left atrium: Size was normal. Atrial septum: No gross evidence of shunt flow seen, however the possibility of a PFO cannot be completely ruled out. Right ventricle: The size was normal. Systolic function was normal. Pulmonic valve: Doppler: There was no significant regurgitation. Pulmonary artery: Doppler: There was no pulmonary artery hypertension. Tricuspid valve: The valve structure was normal. Doppler: There was mild regurgitation. Right atrium: Size was normal. Systemic veins: IVC: The inferior vena cava was normal in size and course. The respirophasic change in diameter was more than 50%. Pericardium: There was no pericardial effusion. The pericardium was normal in appearance. Details: The procedure was performed at the bedside. Measurement tables 2D measurements Left ventricle (Reference normals) LVID ed, PLAX 46 mm (35-60) LVID es, PLAX 36 mm (21-40) FS, PLAX 21.74 % (25-46) LVPW thickness ed 10 mm (6-11) Ratio, IVS/LVPW 0.9(<1.3) Vol ed, MOD2 91 ml (--) Vol es, MOD2 52 ml (--) Stroke vol 39 ml (--) EF 43 % (--) Vol index ed 44 ml/m squared (--) Vol index es 25 ml/m squared (--) Stroke index 18.93 ml/m squared (--) Ventricular septum (Reference normals) IVS thickness ed 9 mm (6-11) LVOT (Reference normals) Diam 19 mm (--) Aorta (Reference normals) AAo AP diam 32 mm (--) Left atrium (Reference normals) Vol index15 cc/m squared (11-38) Systemic veins (Reference normals) Prox IVC diam 14 mm (12-23) M-mode measurements Aorta (Reference normals) Root diam ed 30 mm (20-37) Left atrium (Reference normals) AP dim 30 mm (19-40) AP dim index 1.46 cm/m squared (<2.2) LA/Ao root ratio 1(--) Right ventricle (Reference normals) TAPSE21 mm (--) Doppler measurements Left ventricle (Reference normals) Ea, lat joe, tiss DP 10.2 cm/s (--) E/Ea, lat joe, tiss DP 5.88(--) Ea, med joe, tiss DP 7.54 cm/s (--) E/Ea, med joe, tiss DP 7.96(--) LVOT (Reference normals) Peak puneet 72 cm/s (--) VTI 18 cm (--) Stroke vol 51.04 ml (--) Stroke index 51.04 ml/m squared (--) Aortic valve (Reference normals) Peak puneet 144 cm/s (--) VTI 32 cm (--) DSI, VTI 0.56(--) Valve area, VTI 1.59 cm squared (--) Area index, VTI 0.77 cm squared/m squared (--) Obstr index, Vmax 0.5(--) Valve area, Vmax 1.42 cm squared (--) Mitral valve (Reference normals) Peak E puneet 60 cm/s (--) Peak A puneet 54 cm/s (--) Decel time 216 ms (160-240) Peak E/A ratio 1.11(--) Peak E puneet, Valsalva 43 cm/s (--) Peak A puneet, Valsalva 58 cm/s (--) Peak E/A ratio, Valsalva 0.74(--) Right ventricle (Reference normals) Pressure sys 20 mmHg (<30) Sa puneet, lat joe, tiss DP 12.4 cm/s (--) RVOT (Reference normals) Peak puneet 43 cm/s (--) Pulmonic valve (Reference normals) Peak puneet 51 cm/s (--) Pulmonary arteries (Reference normals) Pressure sys 20 mmHg (<40) Tricuspid valve (Reference normals) Regurg peak puneet 206 cm/s (--) Other echo measurements (Reference normals) Estimated CVP 3 mmHg (--) Prepared and electronically signed by COTY OROPEZA MD Signed Permanent chart copy 05-Mar-2019 07:07:06 Performing Organization Address City/State/[facility] Phone Number [facility] LAB ONLY-COMPLETE BLOOD COUNT WITH DIFFERENTIAL (03/04/2019 12:33 PM CDT) WBC 12.5 (H) 4.0 - 11.0 K/uL [facility] LABORATORY RBC 4.78 4.40 - 5.80 M/uL [facility] LABORATORY Hemoglobin 14.8 13.5 - 17.5 g/dL [facility] LABOR[facility]ORY Hematocrit 41.2 40.0 - 50.0 % [facility] LABORATORY MCV 86.2 80.0 - 98.0 fL [facility] LABORATORY MCH 31.0 25.5 - 34.0 pg [facility] LABORATORY MCHC 35.9 31.5 - 36.5 g/dL [facility] LABOR[facility]ORY RDW-CV 13.8 11.5 - 15.5 % [facility] LABORATORY RDW-SD 43.0 35.5 - 50.0 fl [facility] LABORATORY Platelet Count 209 140 - 400 K/uL [facility] LABORATORY MPV 11.7 8.5 - 12.0 fL [facility] LABORATORY Seg Neut Absolute 9.3 (H) 1.8 - 8.0 K/uL [facility] LABORATORY Lymphocytes Absolute 2.5 0.8 - 4.1 K/uL [facility] LABORATORY Monocytes Absolute 0.6 0.0 - 1.0 K/uL [facility] LABORATORY Eosinophils Absolute 0.1 0.0 - 0.7 K/uL [facility] LABORATORY Basophil Absolute 0.0 0.0 - 0.2 K/uL [facility] LABORATORY Immature Granulocyte Absolute 0.02 0.00 - 0.06 K/uL [facility] LABORATORY Neutrophils Abs. (Segs and 9,300 /uL [facility]) [facility]ENTER LABORATORY Neutrophils Percent 74.3 % [facility] LABORATORY Lymphocytes Percent 19.9 % [facility] LABORATORY Monocytes Percent 4.9 % [facility] LABORATORY Immature Granulocyte Percent 0.2 % [facility] LABORATORY Eosinophils Percent 0.4 % [facility] LABORATORY Basophil Percent 0.3 % [facility] LABORATORY Specimen Blood - Blood Performing Organization Address City/[facility] Phone Number [facility] [address] [place], [place] [phone] LABORATORY GLYCATED HEMOGLOBIN (03/04/2019 12:33 PM CDT) Hgb A1C 5.6 4.3 - 5.6 % [facility] Comment: CENTER LABORATORY Hemoglobin A1c Guidelines 5.7-6.4% Prediabetic >=6.5%Diabetic < 7.0% Diabetic patient goal These guidelines follow 2010 ADA recommendations. Mean Plasma Glucose 114 mg/dL [facility] Comment: CENTER LABORATORY Mean Plasma Glucose value is calculated using the 2010 ADA recommended equation (MPG=28.7 x A1c - 46.7). Specimen Blood - Blood Performing Organization Address City/[facility] Phone Number [facility] [address], [place] [phone] LABORATORY BRAIN NATRIURETIC PEPTIDE (03/04/2019 12:33 PM CDT) BNP 110 (H) 0 - 100 pg/mL [facility] LABORATORY Specimen Blood - Blood Performing Organization Address City/State/Zipcode Phone Number [facility] [address] [place] [address] LABORATORY COMPREHENSIVE METABOLIC PANEL (03/04/2019 12:33 PM CDT) Glucose 103 (H) 70 - 100 mg/dL [facility] LABORATORY BUN 13 6 - 22 mg/dL [facility] LABORATORY Creatinine 0.82 0.80 - 1.30 [facility] mg/dL [facility] LABORATORY BUN/Creatinine Ratio 15.9 10.0 - 25.0 [facility] LABORATORY Sodium 139 135 - 145 meq/L [facility] LABORATORY Potassium 4.1 3.5 - 5.3 meq/L [facility] LABORATORY Chloride 110 99 - 110 meq/L [facility] LABORATORY CO2 20 (L) 23 - 32 meq/L [facility] LABORATORY Anion Gap with K 13 6 - 20 meq/L [facility] LABORATORY Calcium 9.3 8.5 - 10.5 mg/dL [facility] LABORATORY Protein Total 6.7 6.0 - 8.2 g/dL [facility] LABORATORY Albumin 4.0 3.5 - 5.0 g/dL [facility] LABORATORY Alkaline Phosphatase 61 30 - 150 U/L [facility] LABORATORY AST - SGOT 90 (H) 0 - 35 U/L [facility] LABORATORY ALT - SGPT 30 0 - 55 U/L [facility] LABORATORY Bilirubin Total 1.0 0.2 - 1.2 mg/dL [facility] LABORATORY Age 60 Years [facility] LABORATORY eGFR Non- >90 >=60 [facility] Australian mL/min/1.73m2 [facility] LABORATORY eGFR >90 >=60 [facility] Comment: mL/min/1.73m2 [facility] The estimated Glomerular Filtration Rate (eGFR) is calculated using the Abbreviated Modification of Diet in Renal Disease (MDRD) equation.The eGFR is reported out in mL/min. per 1.73 meter squared units. LABORATORY The National Kidney Foundation action value for patients without a diagnosis of chronic kidney disease is a eGFR of < 60 mL/min per 1.73M2. The National Kidney Foundation stages listed below apply to patients with a diagnosis of chronic kidney disease (defined as either kidney damage or eGFR < 60 mL/min/1.73 m2 for 3 months).Kidney da mage is defined as pathologic abnormalities or markers of damage, including abnormalities in blood or urine tests or imaging studies.These stages apply to adults.No standardized classification has yet been established for pediatric patients. Stage eGFR in ml/min per 1.73M2 1 Kidney abnormality with normal or increased eGFR >or=90 2 Kidney abnormality with mild decreased eGFR 60-89 3 Moderately decreasedeGFR 30-59 4 Severely decreased eGFR 15-29 5 Kidney failure <15 The eGFR varies with age, sex, race and body size and normally decreases with age. Specimen Blood - Blood Performing Organization Address City/[facility] Phone Number [address] [address] LABORATORY LIPID PANEL (03/04/2019 12:33 PM CDT) Cholesterol 208 (H) 100 - 200 mg/dL [facility]ORY Triglyceride 53 50 - 150 mg/dL [facility] LAB[facility]ORY HDL 54 40 - 80 mg/dL [facility]ORY LDL 143 (H) 0 - 129 mg/dL [facility] LABORATORY Specimen Blood - Blood Performing Organization Address City/[facility] Phone Number [address] [phone] LABORATORY Cardiac Cath Possible Angioplasty Stent Manufacturing Systems Engineer - Left; With grafts? Unknown ( 03/04/2019 10:12 AM CDT) Narrative Performed At [facility] This summary may not be all inclusive and therefore may not be complete.Please view the entire report by clicking on Imaging Results link. Referring Provider:COTY OROPEZA Manufacturing Systems Engineer Report -- Comprehensive Report Manufacturing Systems Engineer Report -- Comprehensive Report [address] [address] Manufacturing Systems Engineer Report -- Comprehensive Report Patient: ELIESER SALCIDO MR #: [id number] Study Date: 04-Mar-2019 : 1960 Gender: Male Height: 74 in Weight: 179.5 lb BSA: 2.08 m squared Room: Test time: 10:58 - 11:49 Fluoro time: 16.7 min Cathing Door Repairman:COTY OROPEZA MD Retail Event Coordinator:JERARDO VAZQUEZ Scrub:VICKIE ARMSTRONG CIS Monitor:RAJENDRABARBARA Director Case Management:MARILYN WARREN RT(R) Referring Physician:ALFRED ESPANA M.D. Primary Care Physician:ALFRED ESPANA M.D. Interventionalist:COTY OROPEZA MD PROCEDURES PERFORMED: --Fluoro 0-60 Minutes. --Medication/Infusion/Drip. --Selective Rt Coronary Angiography. --Selective Lt Coronary Angiography. --TR Band. --PTCA. --Interventional IVUS. --Drug Eluting Stent Placement. --Intervention on mid LAD: percutaneous intervention. PROCEDURE COMPLETION: An IABP was not used. No mechanical ventricular support was required. TIMING: Test started at 10:58. Test concluded at 11:49. RADIATION EXPOSURE: Fluoroscopy time: 16.7 min. SUMMARY: --1ST LESION INTERVENTIONS: --A percutaneous intervention was performed on the lesion in the mid LAD. --A XIENCE HAYLIE 2.5 X 38 drug-eluting stent at a maximum inflation pressure of 18 leah. --A XIENCE HAYLIE 3.5 X 38 drug-eluting stent at a maximum inflation pressure of 18 leah. --A XIENCE HAYLIE 3.5 X 15 drug-eluting stent at a maximum inflation pressure of 20 leah. CORONARY VESSELS: Mid LAD: PROCEDURE: The risks and alternatives of the procedures and conscious sedation were explained to the patient and informed consent was obtained. The patient was brought to the dentures lab technician and placed on the table. The planned puncture sites were prepped and draped in the usual sterile fashion. Cardiac catheterization performed emergently. --Right radial artery access. The vessel was accessed, a wire was threaded into the vessel, and a was advanced over the wire into the vessel. --Fluoro 0-60 Minutes. --Medication/Infusion/Drip. --Selective Rt Coronary Angiography. --Selective Lt Coronary Angiography. --TR Band. LESION INTERVENTION: A percutaneous intervention was performed on the lesion in the mid LAD. There was no dissection. --, using a SPRINTER LEGEND 2 X 15 balloon, with 2 inflations and a maximum inflation pressure of 14 leah. --, using a SPRINTER LEGEND OTW 1.25 X 06 balloon, with 3 inflations and a maximum inflation pressure of 14 leah. --A XIENCE HAYLIE 2.5 X 38 drug-eluting stent at a maximum inflation pressure of 18 leah. --A XIENCE HAYLIE 3.5 X 38 drug-eluting stent at a maximum inflation pressure of 18 leah. --A XIENCE HAYLIE 3.5 X 15 drug-eluting stent at a maximum inflation pressure of 20 leah. --, using a NC TREK 3.75 X 15 balloon, with 4 inflations and a maximum inflation pressure of 18 leah. CARDIAC INTERVENTIONS --PTCA. --Interventional IVUS. --Drug Eluting Stent Placement. MEDICATIONS GIVEN: Midazolam, 0.5 mg, IV, at 11:02. Fentanyl, 25 mcg, IV, at 11:02. Verapamil (Isoptin, Calan, Covera), 2.5 mg, IA, at 10:58. Verapamil (Isoptin, Calan, Covera), 200 mcg, intracoronary, at 11:39. 1% Lidocaine, 1 ml, subcutaneously, at 10:57. Heparin (IA), 3,000 units, at 10:58. Normal Saline 0.9%, 6 ml, at 10:58. Nitroglycerin IA, 200 mcg, at 10:58. Heparin Bolus, 5,000 units, IV, at 11:06. Angiomax Drip, infusion rate of 28.6 ml/hr, IV, at 11:20. Normal Saline (total), 600 ml, IV, at 11:50. CONTRAST GIVEN: Omnipaque 150 ml. Prepared and signed by COTY OROPEZA MD Signed 04-Mar-2019 12:33:16 HEMODYNAMIC TABLES Pressures:Baseline Pressures:- HR: 111 Pressures:- Rhythm: Pressures:-- Aortic Pressure (S/D/M): 131/103/121 Outputs:Baseline Outputs:-- CALCULATIONS: [age] Outputs:-- CALCULATIONS: Body Surface Area: 2.08 Outputs:-- CALCULATIONS: Height in cm: 188.00 Outputs:-- CALCULATIONS: Sex: Male Outputs:-- CALCULATIONS: Weight in k.60 Performing Organization Address City/State/[facility] Phone Number [facility] documented in this encounter Visit Diagnoses Diagnosis ST elevation myocardial infarction involving left anterior descending (LAD) coronary artery (HCC) - Primary Peripheral polyneuropathy Unspecified hereditary and idiopathic peripheral neuropathy Essential hypertension Unspecified essential hypertension documented in this encounter Administered Medications Medication Order MAR Action Action Date Dose Rate Site aspirin enteric coated tablet 81 Given 03/06/2019 8:10 AM CDT 81 mg mg 81 mg, Oral, Daily, First dose on 03/05/19 at 0900, Until Discontinued, Post-Procedure (Cath), Tablet should be swallowed whole and not be divided, crushed or chewed., Given 03/05/2019 8:32 AM CDT 81 mg atorvaSTATin (LIPITOR) tablet 80 mg Given 03/06/2019 8:10 AM CDT 80 mg 80 mg, Oral, Daily, First dose on 03/04/19 at 1215, Until Discontinued Given 03/05/2019 8:31 AM CDT 80 mg Given 03/04/2019 1:03 PM CDT 80 mg gabapentin (NEURONTIN) capsule 100 mg Given 03/05/2019 8:42 PM CDT 100 mg 100 mg, Oral, Two times a day, First dose on 03/04/19 at 2100, Until Discontinued Given 03/05/2019 8:31 AM CDT 100 mg lisinopril (PRINIVIL, ZESTRIL) tablet 20 mg Given 03/06/2019 8:10 AM CDT 20 mg 20 mg, Oral, Two times a day, First dose on 03/04/19 at 2100, Until Discontinued Given 03/05/2019 8:42 PM CDT 20 mg Given 03/05/2019 8:31 AM CDT 20 mg metoprolol succinate (TOPROL XL) SR tablet Given 03/06/2019 8:10 AM CDT 50 mg (24 hr) 50 mg 50 mg, Oral, Daily, First dose on 03/05/19 at 0900, Until Discontinued, Tablet may be broken in half, but should not be crushed or chewed., , , Given 03/05/2019 11:13 AM CDT 50 mg ticagrelor (BRILINTA) tablet 90 mg Given 03/06/2019 8:10 AM CDT 90 mg 90 mg, Oral, Two times a day, First dose on 03/05/19 at 0900, Until Discontinued, Post-Procedure (Cath), Begin in AM, Given 03/05/2019 8:42 PM CDT 90 mg Given 03/05/2019 8:32 AM CDT 90 mg Medication Order MAR Action Action Date Dose Rate Site bivalirudin (ANGIOMAX) 250 mg/50 Given 03/04/2019 11:11 AM CDT 250 mg mL IV piggyback (addEASE)(locked) 1 dose, Starting 03/04/19 at 1104, Until 03/04/19 at 1111, MullanMarisa: cabinet override, fentaNYL (100 mcg/2 mL) preservative free injection solution 1 dose, Starting 03/04/19 at 1014, Until 03/04/19 at 1148, MullanMarisa: cabinet override, fentaNYL 100 mcg/2 mL preservative free Given 03/04/2019 11:48 AM CDT 25 mcg injection solution 25-100 mcg 25-100 mcg, IV, One time, 1 dose, 03/04/19 at 1125, 2 mL, For use in Cardiac Manufacturing Systems Engineer procedure only, heparin (porcine) 1,000 units/mL Given 03/04/2019 11:20 AM CDT 5,000 Units injection solution 1 dose, Starting 03/04/19 at 1105, Until 03/04/19 at 1120, MullanMarisa: cabinet override, iohexol (OMNIPAQUE) 350 mg/mL solution 0-200 Given 03/04/2019 11:49 AM CDT 150 mL mL 0-200 mL, Intra-arterial, Now imaging, 1 dose, Starting 03/04/19 at 1020, Until 03/04/19 at 1149, 250 mL, (Administration Instructions were omitted from this summary because they were too long), metoprolol succinate (TOPROL XL) SR tablet Given 03/04/2019 1:03 PM CDT 25 mg (24 hr) 25 mg 25 mg, Oral, Daily, First dose on 03/04/19 at 1215, Until Discontinued, Tablet may be broken in half, but should not be crushed or chewed., , , midazolam (VERSED) 2 mg/2 mL injection solution 1 dose, Starting 03/04/19 at 1014, Until 03/04/19 at 1149, MullanMarisa: cabinet override, midazolam (VERSED) injection solution 0.5-2 Given 03/04/2019 11:49 AM CDT 0.5 mg mg 0.5-2 mg, IV, One time, 1 dose, 03/04/19 at 1125, 2 mL, For use in Cardiac Manufacturing Systems Engineer procedure only., sodium chloride 0.9% IV solution New Bag 03/04/2019 1:06 PM CDT 100 mL/hr IV, at 100 mL/hr, Continuous, Starting 03/04/19 at 1315, Until 03/04/19 at 1814, 1,000 mL, Post-Procedure (Cath) ticagrelor (BRILINTA) tablet 180 mg Given 03/04/2019 6:10 PM CDT 180 mg 180 mg, Oral, One time, 1 dose, 03/04/19 at 1730, If medication is crushed, must be mixed with water for administration., verapamil 2.5 mg/mL IV solution Given 03/04/2019 11:49 AM CDT 200 mg 1 dose, Starting 03/04/19 at 1121, Until 03/04/19 at 1149, MullanMarisa: cabinet override, documented in this encounter
== END 2019-03-04 10:47 ==
LOC: JP.ED 08:23
DX: I21.3 ST elevation (STEMI) myocardial infarction of unspecified site (principal); I10 Essential (primary) hypertension; F17.200 Nicotine dependence, unspecified, uncomplicated; Z79.899 Other long term (current) drug therapy
CPT/HCPCS: 36415; 80048; 81001; 84484; 85027; 93005; 96374; 96375; 99285; A9270; J1644; J2270

== ENCOUNTER 2019-05-23 19:05 | Emergency (ER) | payer MEDICAID ==
--- NOTE | 2019-05-23 19:56 | EDM.PDOC ---
ED HPI GENERAL MEDICAL PROBLEM - General Chief Complaint: General Stated Complaint: LEFT ARM PAIN,VERY TIRED Time Seen by Provider: 05/23/19 19:50 Source of Information: Reports: Patient, Family, Old Records, RN Notes Reviewed History Limitations: Reports: No Limitations - History of Present Illness INITIAL COMMENTS - FREE TEXT/NARRATIVE: 58-year-old gentleman presents emergency department today complaint of left arm pain, he states this happened approximately 5 days ago after cardiac rehabilitation he developed left arm pain states the pain improves when he walks gets worse when he rests describes as a dull achy pain. There is no nausea no vomiting no shortness of breath no diaphoresis no chest pain Left Upper Shoulder Pain Score (Numeric/FACES): 7 - Related Data Allergies Allergy/AdvReac Type Severity Reaction Status Date / Time No Known Allergies Allergy Verified 03/04/19 08:34 Home Meds: Home Meds Aspirin [Halfprin] 81 mg PO DAILY 05/23/19 [History] Lisinopril 20 mg PO DAILY 05/23/19 [History] Metoprolol Succinate 50 mg PO DAILY 05/23/19 [History] Rosuvastatin [Crestor] 20 mg PO DAILY 05/23/19 [History] Ticagrelor [Brilinta] 90 mg PO DAILY 05/23/19 [History] amLODIPine Besylate [Amlodipine Besylate] 5 mg PO DAILY 05/23/19 [History] Past Medical History HEENT History: Reports: Cataract, Macular Degeneration Cardiovascular History: Reports: CAD, Hypertension, CA, Stents Other Cardiovascular History: STEMI Musculoskeletal History: Reports: Other (See Below) Other Musculoskeletal History: chronic inflammatory demyelinating polyneuropathy Neurological History: Reports: CVA, Other (See Below) Other Neuro History: bilat leg pain - "neurological problem" - Infectious Disease History Infectious Disease History: Reports: Chicken Pox - Past Surgical History HEENT Surgical History: Reports: Cataract Surgery Cardiovascular Surgical History: Reports: None, Coronary Artery Stent Neurological Surgical History: Reports: None Musculoskeletal Surgical History: Reports: None Dermatological Surgical History: Reports: None Social & Family History - Family History Family Medical History: Noncontributory Cardiac: Reports: CAD - Tobacco Use Smoking Status *Q: Current Every Day Smoker Years of Tobacco use: 45 Packs/Tins Daily: 1 - Caffeine Use Caffeine Use: Reports: Coffee Caffeine Use Comment: couple of cups a day - Recreational Drug Use Recreational Drug Use: No ED ROS GENERAL - Review of Systems Review Of Systems: See Below Constitutional: Reports: No Symptoms HEENT: Reports: No Symptoms Respiratory: Reports: No Symptoms Cardiovascular: Reports: No Symptoms GI/Abdominal: Reports: No Symptoms Musculoskeletal: Reports: Arm Pain Neurological: Reports: Numbness ED EXAM, GENERAL - Physical Exam Exam: See Below Exam Limited By: No Limitations General Appearance: Alert, WD/WN, No Apparent Distress Respiratory/Chest: No Respiratory Distress, Lungs Clear, Normal Breath Sounds, No Accessory Muscle Use, Chest Non-Tender Cardiovascular: Regular Rate, Rhythm, No Murmur GI/Abdominal: Soft, Non-Tender Course - Vital Signs Last Recorded V/S: Last Vital Signs Temp 97.9 F 05/23/19 19:32 Pulse 105 H 05/23/19 19:32 Resp 16 05/23/19 19:32 BP 184/100 H 05/23/19 19:32 Pulse Ox 96 05/23/19 19:32 - Orders/Labs/Meds Orders: Active Orders 24 hr Category Date Time Status Cardiac Monitoring [RC] .As Directed Care 05/23/19 19:54 Active EKG Documentation Completion [RC] ASDIRECTED Care 05/23/19 19:54 Active EKG 12 Lead [EK] Stat Ther 05/23/19 19:54 Ordered Labs: Laboratory Tests 05/23/19 05/23/19 05/23/19 Range/Units 20:07 20:07 20:07 WBC 11.9 H (4.5-11.0) K/uL RBC 4.79 (4.30-5.90) M/uL Hgb 14.5 (12.0-15.0) g/dL Hct 42.8 (40.0-54.0) % MCV 89 (80-98) fL MCH 30 (27-31) pg MCHC 34 (32-36) % Plt Count 188 (150-400) K/uL Neut % (Auto) 74 H (36-66) % Lymph % (Auto) 18 L (24-44) % Grant % (Auto) 6 (2-6) % Eos % (Auto) 2 (2-4) % Baso % (Auto) 0 (0-1) % D-Dimer, Quantitative < 100 (0.0-400.0) ng/mL Sodium 142 (140-148) mmol/L Potassium 3.6 (3.6-5.2) mmol/L Chloride 106 (100-108) mmol/L Carbon Dioxide 27 (21-32) mmol/L Anion Gap 9.4 (5.0-14.0) mmol/L BUN 16 (7-18) mg/dL Creatinine 1.0 (0.8-1.3) mg/dL Est Cr Clr Drug Dosing 91.33 mL/min Estimated GFR (MDRD) > 60 (>60) Glucose 182 H (74-106) mg/dL Calcium 9.0 (8.5-10.1) mg/dL CK-MB (CK-2) 1.6 (0-3.6) mg/mL Troponin I < 0.017 (0.000-0.056) ng/mL Departure - Departure Time of Disposition: 21:00 Disposition: Home, Self-Care 01 Condition: Fair Clinical Impression: Left arm pain - Discharge Information Referrals: Mesfin Espana MD [Primary Care Provider] - Forms: ED Department Discharge Additional Instructions: Continue with regular medications, Please followup with your primary care provider in 3-5 days if not better, please call return to the emergency department with worsening of symptoms. - My Orders Last 24 Hours: My Active Orders 05/23/19 19:54 Cardiac Monitoring [RC] .As Directed EKG Documentation Completion [RC] ASDIRECTED EKG 12 Lead [EK] Stat - Assessment/Plan Last 24 Hours: My Active Orders 05/23/19 19:54 Cardiac Monitoring [RC] .As Directed EKG Documentation Completion [RC] ASDIRECTED EKG 12 Lead [EK] Stat Plan: Assessment Acuity = acute Site and laterality = left arm pain Etiology = unclear etiology possibly related to exercising cardiac rehabilitation Manifestations = none Location of injury = Home Lab values = CBC, BMP, troponin within normal limits EKG demonstrates a sinus rhythm there is no ST elevations or depressions Plan I did review lab work EKG results with family plan is discharge home follow-up primary care 3-5 days if no improvement for further evaluation This note was dictated using [employer] recognition software please call with any questions on syntax or grammar.
== END 2019-05-23 21:07 | disposition home or self-care (01) ==
LOC: JP.ED 19:05
DX: M79.602 Pain in left arm (principal); I25.10 Atherosclerotic heart disease of native coronary artery without angina pectoris; I10 Essential (primary) hypertension; I25.2 Old myocardial infarction; F17.210 Nicotine dependence, cigarettes, uncomplicated; Z79.82 Long term (current) use of aspirin; Z79.899 Other long term (current) drug therapy; Z86.73 Personal history of transient ischemic attack (TIA), and cerebral infarction without residual deficits
CPT/HCPCS: 36415; 80048; 82553; 84484; 85025; 85379; 93005; 99283-25

== ENCOUNTER 2025-02-10 13:30 | Emergency (ER) | payer MEDICARE ==
[2025-02-10 13:47] LABS: BASOPHILS ABSOLUTE AUTO 0.06 K/uL (0.00-0.10); BASOPHILS PERCENT AUTO 0.7 % (0.1-1.3); EOSINOPHILS ABSOLUTE AUTO 0.17 K/uL (0.00-0.40); HEMATOCRIT 42.7 % (38.4-49.7); HEMOGLOBIN 14.9 g/dL (12.9-16.9); IMMATURE GRAN PERCENT AUTO 0.1 % (0.0-0.7); LYMPHOCYTES ABSOLUTE AUTO 2.24 K/uL (0.8-3.3); LYMPHOCYTES PERCENT AUTO 26.5 % (11.4-47.7); MEAN CORPUSCULAR HEMOGLOBIN 31.4 pg (31.6-35.5); MEAN CORPUSCULAR HGB CONC 34.9 g/dL (31.6-35.5); MEAN CORPUSCULAR VOLUME 90.1 fL (81.4-99.0); MONOCYTES ABSOLUTE AUTO 0.61 K/uL (0.20-0.90); MONOCYTES PERCENT AUTO 7.2 % (3.3-12.6); NEUTROPHILS ABSOLUTE AUTO 5.35 K/uL (1.0-7.6); NEUTROPHILS PERCENT AUTO 63.5 % (40.0-78.1); PLATELET COUNT,PLT 189 K/uL (130-375); RED BLOOD CELL COUNT 4.74 M/uL (4.14-5.76); WHITE BLOOD CELL COUNT,WBC 8.4 K/uL (3.2-11.0)
[2025-02-10 13:55] LABS: IMMATURE GRAN ABSOLUTE AUTO 0.01 K/uL (0.00-0.23)
[2025-02-10] MEDS: Aspirin 81 MG Tab.Chew PO ONE (14:01)
[2025-02-10] MEDS: Nitroglycerin 0.4 MG Tab.SL SL PRN (14:02)
[2025-02-10] MEDS: Sodium Chloride 0.9% 10 ML Syringe FLUSH PRN (14:02)
[2025-02-10 14:09] LABS: CREATININE 0.9 mg/dL (0.8-1.3); EST CRCL DRUG DOSING (CG) 93.87 mL/min; MAGNESIUM 1.9 mg/dL (1.8-2.4); POTASSIUM,K 3.5 mmol/L (3.6-5.2); TROPONIN I HIGH SENSITIVITY 8.3 pg/mL (<=60.3)
[2025-02-10 14:14] LABS: ANION GAP 16.5 mmol/L (5.0-14.0)
[2025-02-10] MEDS: Alum Hydrox/Mag Hydrox/Simeth 15 ML, Lidocaine 2% 15 ML PO ONE (15:40)
== END 2025-02-10 16:43 | disposition home or self-care (01) ==
LOC: JP.ED 13:30
DX: R07.9 Chest pain, unspecified (principal); I10 Essential (primary) hypertension; I25.10 Atherosclerotic heart disease of native coronary artery without angina pectoris; I25.2 Old myocardial infarction; Z79.899 Other long term (current) drug therapy; Z79.82 Long term (current) use of aspirin; Z79.02 Long term (current) use of antithrombotics/antiplatelets
CPT/HCPCS: 36415; 71046; 80048; 83735; 84484; 85025; 85379; 93005; 99285; A9270; 93010; 99284